=== PATIENT | female | born 1990 | race Caucasian/White ===

== ENCOUNTER 2019-03-19 08:58 | Outpatient (RCR) | payer OTHER, SELFPAY ==
[2019-03-19 09:47] VITALS: PULSE 97
== END 2019-04-09 07:36 | disposition home or self-care (01) ==
LOC: ANHOBOP 08:58
PROVIDERS: PCP Family Medicine; Visit Provider Student in an Organized Health Care Education/Training Program
DX: O32.1XX0 Maternal care for breech presentation, not applicable or unspecified (principal); Z3A.36 36 weeks gestation of pregnancy
CPT/HCPCS: 59025

== ENCOUNTER 2019-04-06 06:57 | Inpatient (IN) | payer OTHER, SELFPAY ==
[2019-04-06] VITALS (15 sets, daily range): BP systolic 116–134; BP diastolic 71–81; PULSE 96–101; TEMP 36.6–37.2; BMI 28.5
[2019-04-06 09:08] LABS: Basophils Percent Auto 0.3 % (0.2-1.2); Eosinophils Absolute Auto 0.1 K/mm3 (0-0.3); Eosinophils Percent Auto 0.7 % (0-4.4); Hematocrit 39.9 % (37.0-47.0); Hemoglobin 13.4 g/dL (12.0-15.0); Immature Granulocyte Absolute 0.07 K/mm3 (0.00-0.031); Immature Granulocyte Percent A 0.7 % (0-0.5); Immature Platelet Fraction Pct 20.3 % (0.9-11.2); Lymphocytes Absolute Auto 1.64 K/mm3 (0.9-3.2); Lymphocytes Percent Auto 15.5 % (18.3-44.2); Mean Corpuscular HGB Conc 33.6 g/dl (32-36); Mean Corpuscular Hemoglobin 32.2 pg (26-34); Mean Corpuscular Volume 95.9 fl (80-100); Mean Platelet Volume 13.5 fl (7.4-10.4); Monocytes Absolute Auto 0.4 K/mm3 (0.1-0.6); Monocytes Percent Auto 4.2 % (2.6-8.5); Neutrophils Absolute Auto 8.3 K/mm3 (1.3-6.7); Neutrophils Percent Auto 78.6 % (45.5-73.1); Platelet Count Result 116 k/mm3 (150-375); Red Blood Count 4.16 M/mm3 (4.2-5.4); Red Cell Distribution Width 13.6 % (11.5-14.5); White Blood Count 10.6 K/mm3 (4.5-10.0)
--- NOTE | 2019-04-06 09:12 | LDADM ---
This patient, Lyubov Costa, was admitted to Labor/Delivery/Recovery 106 on 04/06/19 at 06:57. Plans for labor, pain management and were discussed with patient. Patient/family oriented to hospital policies and general routines including ID bracelet, bed and alarms, visiting hours, pain management, procedures, bathroom and other care routines, personal items, smoking policy, room service/diet and guest tray routines, infant security routines, and visiting hours. Patient/Family are encouraged to report perceived risks to care and to ask questions if they do not understand what they are told or what they should do. See OBIX for further documentation.
[2019-04-06] MEDS: DINOPROSTONE 10 MG VAG INSERT VAGINAL (09:24)
--- NOTE | 2019-04-06 09:50 | PM.IMHP ---
H&P: HPI History of Present Illness Chief complaint: Induction of Labor Narrative: Lyubov Costa is a 28 year old female last menstrual period June 25, 2018. ALEX April 11, 2019. Patient is currently 39 weeks and 2 days gestation. Patient is dated by an ultrasound on August 20, 2018 at 6 weeks gestation. Patient presented this morning initially for a scheduled due to breech presentation. She was scanned upon arrival and fetus was noted to be in vertex presentation. Lengthy discussion was had with patient and patient has opted to proceed with elective induction of labor. the patient is otherwise feeling well today. Denies any vaginal bleeding, leakage of fluid, or contractions. Reports good movement. has been uncomplicated. Of note, father of baby had history of congenital heart defect status post repair at age 6. echo during this was within normal limits. Review of Systems Review of Systems: All systems reviewed & are unremarkable except as noted in HPI and below Constitutional: Constitutional: Reports as per HPI, Reports no additional constitutional complaints, Denies chills, Denies fever(s), Denies headache(s) and Denies night sweats Eyes: Eyes: Reports as per HPI and Reports no additional eye complaints ENT: Reports system reviewed and no additional complaints, except as documented, Reports as per HPI, Reports Normal hearing present and Denies headache(s) Cardiovascular: Cardiovascular: Reports as per HPI, Reports no additional cardiovascular complaints, Denies chest pain and Denies dyspnea Respiratory: Respiratory: Reports as per HPI, Reports no additional respiratory complaints, Denies cough and Denies dyspnea Gastrointestinal: Gastrointestinal: Reports as per HPI, Reports no additional gastrointestinal complaints, Denies abdominal pain, Denies change in bowel habits, Denies change in stool character, Denies nausea and Denies vomiting Genitourinary: Genitourinary: Reports no additional female genitourinary complaints, Reports as per HPI, Denies abnormal vaginal bleeding, Denies genital lesions, Denies hot flashes, Denies dyspareunia, Denies pelvic pain, Denies sexual dysfunction, Denies urinary incontinence, Denies vaginal discharge, Denies vaginal dryness and Denies vaginal odor Musculoskeletal: Musculoskeletal: Reports no additional musculoskeletal complaints and Reports as per HPI Integumentary/Breasts: Skin/Breast: Reports system reviewed and no additional complaints, except as docu, Reports as per HPI, Denies breast pain and Denies nipple discharge Neurologic: Reports system reviewed and no additional complaints, except as documented, Reports as per HPI, Reports Normal hearing present and Denies headache(s) Psychiatric: Psychiatric: Reports no additional psychiatric complaints, Reports as per HPI, Denies anxiety and Denies depression Endocrine: Endocrine: Reports no additional endocrine complaints and Reports as per HPI Hematologic/Lymphatic: Hematologic/Lymphatic: Reports no additional hematologic/lymphatic complaints and Reports as per HPI Allergic/Immunologic: Allergic/Immunologic: Reports no additional allergic/immunologic complaints and Reports as per HPI PMFSH Past Medical History Medical History Asthma Elevated glucose tolerance test Encounter for supervision of normal first in second trimester Encounter for supervision of normal first in third trimester History of herpes simplex infection Surgical History Surgical History [place] teeth removed Family History Family History Father Heart attack Mother Colon cancer Social History Social History Smoking status: Never smoker Substance use: never Spiritual care concerns: No
[2019-04-06 10:00] LABS: HIV 1/2 Ab P24 Ag Result Negative (Negative)
--- NOTE | 2019-04-06 17:21 | WPDANESEPP ---
Anes - Eval Pre Procedure Procedure: Operation Date: 04/06/19 09:00 Proposed Procedures p Labor epidural - Chana Marroquin MD Date/Time: 04/06/19 17:21 Pre Op Diagnosis: Abdominal pain with labor Patient Data Age: 28 Gender: F Height: 5 ft 3 in Weight: 73 kg Last Vital Signs Temp 97.9 F 04/06/19 17:12 Pulse 96 04/06/19 15:18 BP 123/75 04/06/19 15:18 Allergies Allergy/AdvReac Type Severity Reaction Status Date / Time No Known Allergies Allergy Verified 04/01/19 08:31 Home Medications Medication Instructions Recorded Confirmed Type albuterol sulfate 90 mcg/actuation 1 inhalation INHALATION Q4H 01/07/19 04/06/19 History aerosol inhaler vit 123-iron 28 mg-folic 1 cap PO DAILY 01/07/19 04/06/19 History acid 800 [id number] 235 mg capsule valacyclovir 500 mg tablet 500 mg PO Q12H #60 tablet 03/19/19 04/06/19 Rx Laboratory Tests 04/06/19 04/06/19 04/06/19 08:51 08:51 08:51 WBC 10.6 K/mm3 H K/mm3 (4.5-10.0) RBC 4.16 M/mm3 L M/mm3 (4.2-5.4) Hgb 13.4 g/dL g/dL (12.0-15.0) Hct 39.9 % % (37.0-47.0) MCV 95.9 fl fl (80-100) MCH 32.2 pg pg (26-34) MCHC 33.6 g/dl g/dl (32-36) RDW 13.6 % % (11.5-14.5) Plt Count 116 k/mm3 L k/mm3 (150-375) MPV 13.5 fl H fl (7.4-10.4) Immature Gran % (Auto) 0.7 % H % (0-0.5) Neut % (Auto) 78.6 % H % (45.5-73.1) Lymph % (Auto) 15.5 % L % (18.3-44.2) Izard % (Auto) 4.2 % % (2.6-8.5) Eos % (Auto) 0.7 % % (0-4.4) Baso % (Auto) 0.3 % % (0.2-1.2) Lymph # (Auto) 1.64 K/mm3 K/mm3 (0.9-3.2) Izard # (Auto) 0.4 K/mm3 K/mm3 (0.1-0.6) Eos # (Auto) 0.1 K/mm3 K/mm3 (0-0.3) Baso # (Auto) 0.0 K/mm3 K/mm3 (0.0-0.1) Abs Immat Gran (auto) 0.07 K/mm3 H K/mm3 (0.00-0.031) Absolute Neuts (auto) 8.3 K/mm3 H K/mm3 (1.3-6.7) Absolute Nucleated RBC 0.0 K/mm3 K/mm3 (0.0-0.012) Nucleated RBC % 0.0 % % (0.0-0.2) % Immature Plt Fraction 20.3 % H % (0.9-11.2) RPR Pending HIV 1&2 Ab/P24 Ag 4thGn Blood Type B Positive Antibody Screen Negative 04/06/19 08:51 WBC RBC Hgb Hct MCV MCH MCHC RDW Plt Count MPV Immature Gran % (Auto) Neut % (Auto) Lymph % (Auto) Izard % (Auto) Eos % (Auto) Baso % (Auto) Lymph # (Auto) Izard # (Auto) Eos # (Auto) Baso # (Auto) Abs Immat Gran (auto) Absolute Neuts (auto) Absolute Nucleated RBC Nucleated RBC % % Immature Plt Fraction RPR HIV 1&2 Ab/P24 Ag 4thGn Negative (Negative) Blood Type Antibody Screen Patient hx anesthesia problems: none Family hx anesthesia problems: none [facility] Past Medical History Medical History Asthma Elevated glucose tolerance test History of herpes simplex infection Surgical History Surgical History H/O wisdom tooth extraction [place] teeth removed Family History Family History Father Heart attack Mother Colon cancer Social History Social History Smoking status: Never smoker Substance use: never Spiritual care concerns: No Exam Day of Procedure 04/06/19 17:21
[2019-04-06] MEDS: LACTATED RINGERS 1,000 ML 125 ML IV CONT (22:00)
[2019-04-07] VITALS (129 sets, daily range): BP systolic 86–163; BP diastolic 48–96; PULSE 80–172; RESP 16; TEMP 36.9–37.7; O2SAT 97–100
[2019-04-07 07:16] LABS: Rapid Plasma Reagin Non-Reactive (NonReactive)
[2019-04-07] MEDS: LACTATED RINGERS 1,000 ML 125 ML IV CONT ×2 (10:54→15:04)
--- NOTE | 2019-04-07 11:48 | PM.OBPNLAB ---
Pain Control Date/time seen: 04/07/19 11:48 Pain control: tolerating well Pelvic Exam Dilation (cm): 3 Effacement (%): 70 station: -2 Comments: AROM-clear fluid Contractions Contraction pattern: Irregular Status status: Category l Assessment and Plan Assessment: induction ongoing Comments: Continue pitocin Continue EFM and toco Pain management PRN
[2019-04-07] MEDS: ONDANSETRON INJ 4 MG/2 ML VIAL IV PUSH (14:03)
[2019-04-07] MEDS: MISOPROSTOL 200 MCG TABLET 800 MCG RECTAL (21:14)
--- NOTE | 2019-04-07 21:22 | PM.OBPRVD ---
OB - Delivery Note Procedure Delivery date: 04/07/19 Procedure: Procedures The patient is now a 28 year-old who was admitted to Labor and delivery on 04/06/2019 at 39 weeks and 2 days gestation for an elective induction of labor. Induction of labor was started with Cervidil. Initial cervical exam was closed, thick, and high. Cervidil remained in place for 12 hours. Upon removal of Cervidil, cervix was noted to be approximately 2 cm dilated. 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 After 12 hours of Pitocin, the patient was noted to be 3 cm dilated. Pitocin was discontinued and the patient was rested. Artificial rupture membranes was performed at 11:04 a.m. Clear amniotic fluid was noted. Pitocin was restarted and continuously titrated. Patient began making cervical change. She became uncomfortable and requested epidural for pain management which was placed without difficulty. She continued to make progressive cervical change and was noted to be fully dilated at 7:00 p.m. the patient was encouraged to push and found to be pushed well. Patient was prepped and draped for delivery. A right mediolateral episiotomy was performed to facilitate delivery. At 8:43 p.m., 's head was delivered atraumatically without difficulty in ADINA presentation. Compound presentation was also noted as an hand was delivered alongside 's face. Occiput restituted to maternal left side. A nuchal cord x1 was noted and easily reduced. With subsequent push, the neck, shoulders, and rest body were also delivered atraumatically and without difficulty. Terminal meconium was noted. The 's nose and mouth were suction with bulb suction. The was crying spontaneously. The cord was clamped and cut and the was placed on maternal abdomen. Care was assumed by waiting nursing staff. A segment of cord was collected for cord gases. Cord blood was collected. The placenta was delivered spontaneously and intact. The lower segment of the uterus was noted to be boggy. Moderate amount of bleeding was noted. Straight catheterization was performed with a minimal amount of urine returned. Vigorous bimanual massage was performed and uterine fundus and lower segment was noted to be firm. The episiotomy was repaired with 2-0 Vicryl in the usual fashion. Excellent hemostasis was noted. A moderate amount of bleeding recurred. Bimanual massage was performed again. Cytotec 800 mcg was administered rectally. Bleeding subsided. The patient was cleansed and dried. Estimated blood loss for entire delivery was 450 cc. The infant was a live born male weighing 7 lb 8 oz, Apgars 7 and 9. Both mother and baby doing well at end of delivery. Operation Date: 04/06/19 09:00 <No data on this case meets the specified criteria> events: Labor Induction Intrapartal events: None Induction method: other (cervidil) Delivery augmentation: rupture of membranes and pitocin Delivery monitor: none, external FHT and external uterine Route of delivery: Episiotomy description: Right Mediolateral Delivery repair: vicryl Specimen: No Estimated blood loss (mL): 450 Anesthesia type: Epidural Disposition: floor Complications: None Baby Date of : 04/07/19 Time of : 20:43 Weeks of gestation at delivery: 39 gender: Male Weight (pounds): 7 Weight (ounces): 8 presentation: vertex position: Left Occiput Anterior Placenta delivery description: Spontaneous cord vessel description: 3 Vessels, Nuchal Cord and Clamped/Cut score one minute: 7 score five minutes: 9
[2019-04-07] MEDS: BENZOCAINE 20% AER SPR (*SP) 56 GM CAN 1 SPRAY TOPICAL (22:42)
[2019-04-07] MEDS: IBUPROFEN 600 MG TABLET PO (22:42)
[2019-04-07] MEDS: WITCH HAZEL 40 PADS 1 PAD TOPICAL (22:42)
--- NOTE | 2019-04-07 23:24 | OBPPTRN ---
Patient transferred to post room #291 via wheelchair. Support person present. Oriented to unit, room, information board, rooming in, admission packet and security measures. Patient verbalizes understanding. with patient.
[2019-04-08] MEDS: ACETAMINOPHEN 325 MG TABLET 650 MG PO ×2 (01:51→09:18)
[2019-04-08] MEDS: IBUPROFEN 600 MG TABLET PO ×2 (04:59→16:08)
[2019-04-08 05:45] LABS: Hematocrit 34.6 % (37.0-47.0); Hemoglobin 11.6 g/dL (12.0-15.0)
[2019-04-08 08:00] VITALS: BP 113/77; PULSE 88; RESP 18; TEMP 36.7; O2SAT 100; O2SAT 98
--- NOTE | 2019-04-08 08:29 | PM.OBPNVD ---
OB - PN: Subj Subjective Date/time seen: 04/08/19 08:29 Patient doing well. Reports minimal pain, well controlled with medication. Denies any heavy vaginal bleeding, headache, chest pain, nausea or vomiting. OB - PN: Obj Data Labs CBC & Chem 7: 04/08/19 04:38 Labs: Laboratory Results - last 24 hr 04/08/19 04:38 Hgb 11.6 L Hct 34.6 L OB - PN A/P Assessment and Plan (1) Normal spontaneous vaginal delivery: Code(s): O80 - Encounter for full-term uncomplicated delivery Status: Acute Assessment and Plan: Doing well Continue routine care Encourage ambulation Pain management PRN anticipate discharge home tomorrow Time Spent With Patient Time: Total time spent is greater than 50% in coordination of care (as documented) at patient's floor/unit and/or counseling patient: Exam Const: General: comfortable and no acute distress GI: Other: soft, nontender, fundus below umbilicus
[2019-04-08] MEDS: SIMETHICONE 80 MG TAB.CHEW PO (09:18)
[2019-04-08] MEDS: MULTIVIT/MIN/PREN/FOL AC/IRON TABLET 1 TAB PO (09:18)
[2019-04-08] MEDS: DOCUSATE SODIUM 100 MG CAPSULE PO ×2 (09:18→16:08)
[2019-04-08] MEDS: LANOLIN (LANSINOH) 7.5 GM CREAM 1 APPLIC TOPICAL (09:19)
[2019-04-08] MEDS: WITCH HAZEL 40 PADS 1 PAD TOPICAL (09:20)
[2019-04-08] MEDS: BENZOCAINE 20% AER SPR (*SP) 56 GM CAN 1 SPRAY TOPICAL (09:20)
--- NOTE | 2019-04-08 12:15 | PC.NURSE ---
Mother called out for assist with feeding, reporting is using nipple shield for all feedings. Mother will then pump and nipple EBM after. Discussed nipple shield precautions and possible complications. Instructions given on application and cleaning of shield. Patient able to return demonstration on proper application of shield. Discussed the need for regular pumping if continues to nurse with the shield. Patient verbalizes understanding. Reviewed feeding cues, frequencies, duration of feedings, feeding elimination flow sheet, and signs of adequate intake. Demonstrated stimulation techniques to wake infant for feeding. Assisted with infant to breast. Reviewed positioning/alignment in cross cradle, holding breast in U hold and guided asymmetrical latch on. Discussed rational for each. was able to latch correctly with first attempt using shield. Infant nursed eagerly, with steady draws and frequent swallowing noted. Reviewed signs of a correct latch, effective nursing and suck swallow ratio. was able to maintain latch without discomfort to mother. Nipple care reviewed. Advised to stimulate to keep awake and nursing effectively. Instructed mother to call out for RN assistance if she is unable to latch for feeding or she has discomfort with nursing. Instructed feeding should be initiated three hours from start of last feeding or if feeding cues are noted before. Mother voiced understanding of information shared. Mother will pump when feeding completed and supplement with EBM. Requested mother call out for assist with pumping.
[2019-04-08 22:24] VITALS: BP 105/63; PULSE 82; RESP 18; TEMP 36.8
[2019-04-09] MEDS: IBUPROFEN 600 MG TABLET PO ×2 (05:05→12:20)
--- NOTE | 2019-04-09 09:17 | PM.OBPNVD ---
OB - PN: Subj Subjective Date/time seen: 04/09/19 09:17 Patient doing well. Denies significant pain, well controlled with medication. Bleeding subsiding. Denies any headache, chest pain, nausea vomiting. No problems with breasts. Baby well. OB - PN: Obj Data Labs CBC & Chem 7: 04/08/19 04:38 OB - PN A/P Assessment and Plan (1) Normal spontaneous vaginal delivery: Code(s): O80 - Encounter for full-term uncomplicated delivery Status: Acute Assessment and Plan: Doing well Continue routine care Discharge home in stable condition Emergency precautions reviewed with patient Follow up in office in 2 weeks for an episiotomy check Time Spent With Patient Time: Total time spent is greater than 50% in coordination of care (as documented) at patient's floor/unit and/or counseling patient: Exam Const: General: comfortable and no acute distress GI: Other: soft, nontender, fundus firm beneath umbilicus
--- NOTE | 2019-04-09 09:20 | PM.OBDSVD ---
DS: Diagnosis Admitting Diagnosis Admitting Diagnosis: 39 weeks gestation of OB - DS: Summary OB Procedures : None OB Procedures Intrapartum: Spontaneous Vag Delivery OB Procedures: : None Peripartum Data Delivery Method: Natural Vaginal Episiotomy description: Right Mediolateral Procedures: Procedures Operation Date: 04/06/19 09:00 <No data on this case meets the specified criteria> complications: none Status at Discharge Functional status at discharge: independent ambulation Time Spent with Patient Time attestation: Total time spent providing and/or coordinating discharge services: Discharge Plan Discharge Attending physician on discharge: Chana Marroquin Discharging Clinician: Chana Marroquin Anticipated Discharge Date/Time: 04/09/19 09:21 Patient Disposition: Home, Self-Care Activity: no straining, as tolerated and pelvic rest Diet: regular Discharge Instructions: Call office ([phone]) to schedule a visit in 2 weeks. You may take Ibuprofen 600mg every 6 hours as needed for pain. Pain medication may make you constipated. It may be helpful to take an [id number] stool softener, such as Colace and/or Senokot, along with the pain medication to help lessen constipation. Call office or go to ED for pain not controlled with medication, headache, chest pain, shortness of breath, fever, chills, persistent nausea or vomiting, severe abdominal pain, heavy vaginal bleeding >2 pads/hour, foul vaginal discharge or odor, or problems with your breasts. Patient Instructions: Antibiotic Form Stand Alone Forms: General Discharge Information Follow-up/Referrals: Chana Marroquin MD [Physician] - Discharge Medications: Continued albuterol sulfate 90 mcg/actuation HFA aerosol inhaler 1 inhalation INHALATION Q4H RF: 0 One-A-Day Women's 1 28 mg iron- 800 mcg-235 mg capsule 1 cap PO DAILY RF: 0 Discontinued valacyclovir 500 mg tablet 500 mg PO Q12H Qty: 60 RF: 0 Date of admission: 04/06/19 06:57 Primary Care Provider: UNKNOWN,DOCTOR Admitting Provider: Chana Marroquin Attending physician on admission: Chana Marroquin Condition: Stable
--- NOTE | 2019-04-09 11:05 | PC.NURSE ---
Mother called out for assist with feeding. Mother states she continues to use the nipple shield for all feedings. Mother is pumping 1-2 mls per session and is concerned with feeding status. Mother is worried is not getting enough or feeding as freq as needed. Infant has not fed since circumcision this am. Reviewed feeding freq and need to wake for feedings every 3 hours, feeding before if feeding cues noted. Assisted with infant to breast, mother is able to latch correctly without assist. remains sleepy and makes no effort to suckle. Suggested small amount of formula to infant then transition over to breast. responded well with eager suckling to bottle then on to nipple shield with long rhythmic draws and occasional swallowing noted. Advised to stimulate to keep awake and eagerly suckling. Suggested parents continue to breastfeed each feeding following above to wake and entice into eager suckling. Parents will give 15mls EBM/formula after each feeding and mother will pump for 10-15 minutes. Reviewed infant may require more supplement before her milk is in, and then should slowing take less of supplement until refusing. Advised parents to keep accurate records of feeding/elimination sheet, reviewing required output, calling ICP if less than required. Mother is feeding as required and waking to feed if needed. is currently meeting outcomes for weight, output, jaundice and feeding frequencies. Mother states she feels confident to continue with feeding plan at home. Reviewed transition to breast milk, signs of adequate intake, and engorgement/relief. Instructed to call ICP if intake/output less than required. Reviewed regular medications mother is taking. Information provided per Lizette. Reviewed community resources on the [facility] website and in the Mom/Baby guide. Information on outpatient services provided. Mother has no further questions at this time.
[2019-04-09 12:39] VITALS: BP 118/76; PULSE 94; RESP 16; TEMP 36.9; O2SAT 98
--- NOTE | 2019-04-09 12:42 | PC.NURSE ---
Patient viewed the discharge video Mother & Baby Care, The First Two Weeks . Patient was given the opportunity and encouraged to ask questions. Patient verbalized understanding of information shared and has been given the mother/baby guide for home reference.
[2019-04-10 11:27] VITALS: BP 119/76; PULSE 93; RESP 18; TEMP 36.9
== END 2019-04-09 13:24 | disposition home or self-care (01) | DRG 807 ==
LOC: ANHLDR 17:23 → ANHOB2 04-07 23:59
PROVIDERS: Admitting Provider Student in an Organized Health Care Education/Training Program; Visit Provider Student in an Organized Health Care Education/Training Program
DX: O99.52 Diseases of the respiratory system complicating childbirth (principal); Z37.0 Single live birth; Z3A.39 39 weeks gestation of pregnancy; J45.909 Unspecified asthma, uncomplicated; O69.81X0 Labor and delivery complicated by cord around neck, without compression, not applicable or unspecified; O36.8330 Maternal care for abnormalities of the fetal heart rate or rhythm, third trimester, not applicable or unspecified; Z86.19 Personal history of other infectious and parasitic diseases
CPT/HCPCS: 36415; 85014; 85018; 85025; 85055; 86592; 86703; 86850; 86900; 86901; A9270; G0432; J2405; J2590; J2795; J3010; J7120

== ENCOUNTER → 2019-08-05 15:05 | Outpatient (REF) | payer OTHER, SELFPAY | LOC: ANHLAB 15:05 | PROVIDERS: Visit Provider Nurse Practitioner | DX: D49.2 Neoplasm of unspecified behavior of bone, soft tissue, and skin (principal); L98.0 Pyogenic granuloma | CPT/HCPCS: 88305 ==

== ENCOUNTER 2019-10-06 08:05 | Outpatient (CLI) | payer OTHER, SELFPAY ==
[2019-10-06 08:48] LABS: Beta HCG Quantitative < 2.39 mIU/ML
== END 2019-10-06 08:06 | disposition home or self-care (01) ==
LOC: ANHLAB 08:07
PROVIDERS: PCP Family Medicine; Visit Provider Student in an Organized Health Care Education/Training Program
DX: Z30.430 Encounter for insertion of intrauterine contraceptive device (principal)
CPT/HCPCS: 36415; 84702

== ENCOUNTER → 2021-09-26 09:56 | Outpatient (CLI) | payer OTHER, SELFPAY ==
--- NOTE | ~2021-09-26 | US_ITS ---
EXAMINATION: US OB <= 14 weeks fetus DATE: 09/26/2021 10:23 INDICATION: First trimester dating and viability assessment TECHNIQUE: Real-time pelvic transabdominal and transvaginal ultrasound was performed. COMPARISON: None. FINDINGS: The uterus measures 11.7 x 5.5 x 7.1 cm. There is an intrauterine gestational sac. There i s a 10 mm hypoechoic area adjacent to the gestational sac. A yolk sac is identified. heart tyra on is identified measuring 165 beats per minute (bpm) by M-mode Doppler. The crown rump length measures 3.7 cm , which correlates with an estimated gestational age of 10 weeks and 4 day(s) (+/-) 7 day(s). The right ovary measures 2.7 x 1.1 x 2.7 cm. The left ovary measures 2.0 x 1.0 x 1.8 cm. There is nor mal vascular flow in the ovaries. There is no free fluid in the pelvis. IMPRESSION: 1. Live intrauterine with an estimated gestational age of 10 weeks and 4 day(s) (+/-) 7 day (s) and an estimated delivery date of 04/20/2022. 2. Small subchorionic hemorrhage. Reviewed, dictated and finalized at location B. IMPRESSION: 1. Live intrauterine with an estimated gestational age of 10 weeks an d 4 day(s) (+/-) 7 day(s) and an estimated delivery date of 04/20/2022. 2. Small subchorionic hemorrhage.
== END ==
LOC: EXPGOSHRAD 09:59
PROVIDERS: PCP Family Medicine; Visit Provider Student in an Organized Health Care Education/Training Program
DX: Z32.00 Encounter for pregnancy test, result unknown (principal); O42.90 Premature rupture of membranes, unspecified as to length of time between rupture and onset of labor, unspecified weeks of gestation; Z3A.00 Weeks of gestation of pregnancy not specified
CPT/HCPCS: 76801

== ENCOUNTER 2021-10-11 10:21 | Outpatient (CLI) | payer OTHER, SELFPAY ==
[2021-10-11 10:58] LABS: Basophils Absolute Auto 0.1 K/mm3 (0.0-0.1); Basophils Percent Auto 0.5 % (0.2-1.2); Eosinophils Absolute Auto 0.1 K/mm3 (0-0.3); Eosinophils Percent Auto 0.5 % (0-4.4); Hematocrit 38.3 % (37.0-47.0); Hemoglobin 13.3 g/dL (12.0-15.0); Immature Granulocyte Absolute 0.03 K/mm3 (0.00-0.031); Immature Granulocyte Percent A 0.3 % (0-0.5); Mean Corpuscular HGB Conc 34.7 g/dl (32-36); Mean Corpuscular Hemoglobin 31.5 pg (26-34); Mean Corpuscular Volume 90.8 fl (80-100); Mean Platelet Volume 11.5 fl (7.4-10.4); Monocytes Absolute Auto 0.5 K/mm3 (0.1-0.6); Monocytes Percent Auto 4.2 % (2.6-8.5); Neutrophils Absolute Auto 8.6 K/mm3 (1.3-6.7); Neutrophils Percent Auto 80.5 % (45.5-73.1); Platelet Count Result 239 k/mm3 (150-375); Red Blood Count 4.22 M/mm3 (4.2-5.4); Red Cell Distribution Width 13.1 % (11.5-14.5); White Blood Count 10.7 K/mm3 (4.5-10.0)
[2021-10-11 11:36] LABS: Vitamin D 25 Hydroxy 76.8 ng/mL
[2021-10-11 11:50] LABS: Hepatitis B Surface Antigen Negative (Negative); Rubella IgG Antibody 17.4 IU/ML
[2021-10-11 12:06] LABS: Hepatitis C Virus Antibody Negative (Negative)
[2021-10-11 12:34] LABS: Rapid Plasma Reagin Non-Reactive (NonReactive)
[2021-10-11 13:10] LABS: HIV 1/2 Ab P24 Ag Result Negative (Negative)
== END 2021-10-11 10:22 | disposition home or self-care (01) ==
LOC: ANHLAB 10:23
PROVIDERS: PCP Family Medicine; Visit Provider Student in an Organized Health Care Education/Training Program
DX: Z34.90 Encounter for supervision of normal pregnancy, unspecified, unspecified trimester (principal); Z3A.00 Weeks of gestation of pregnancy not specified
CPT/HCPCS: 36415; 82306; 84443; 85025; 86592; 86703; 86762; 86787; 86803; 86850; 86900; 86901; 87086; 87147; 87181; 87186; 87340; G0432

== ENCOUNTER 2022-01-23 07:09 | Outpatient (CLI) | payer OTHER, SELFPAY ==
[2022-01-23 08:36] LABS: Basophils Percent Auto 0.3 % (0.2-1.2); Eosinophils Absolute Auto 0.1 K/mm3 (0-0.3); Eosinophils Percent Auto 0.7 % (0-4.4); Hematocrit 35.5 % (37.0-47.0); Hemoglobin 12.1 g/dL (12.0-15.0); Immature Granulocyte Absolute 0.04 K/mm3 (0.00-0.031); Immature Granulocyte Percent A 0.5 % (0-0.5); Lymphocytes Absolute Auto 0.99 K/mm3 (0.9-3.2); Lymphocytes Percent Auto 11.3 % (18.3-44.2); Mean Corpuscular HGB Conc 34.1 g/dl (32-36); Mean Corpuscular Hemoglobin 32.1 pg (26-34); Mean Corpuscular Volume 94.2 fl (80-100); Monocytes Absolute Auto 0.3 K/mm3 (0.1-0.6); Monocytes Percent Auto 3.8 % (2.6-8.5); Neutrophils Absolute Auto 7.3 K/mm3 (1.3-6.7); Neutrophils Percent Auto 83.4 % (45.5-73.1); Platelet Count Result 142 k/mm3 (150-375); Red Blood Count 3.77 M/mm3 (4.2-5.4); Red Cell Distribution Width 13.9 % (11.5-14.5); White Blood Count 8.8 K/mm3 (4.5-10.0)
[2022-01-23 09:04] LABS: Glucose 1 Hour PP 50gm Dose 154 mg/dL
== END 2022-01-23 07:10 | disposition home or self-care (01) ==
LOC: ANHLAB 07:10
PROVIDERS: PCP Family Medicine; Visit Provider Student in an Organized Health Care Education/Training Program
DX: Z34.82 Encounter for supervision of other normal pregnancy, second trimester (principal)
CPT/HCPCS: 36415; 82947; 85025

== ENCOUNTER 2022-02-08 06:59 | Outpatient (CLI) | payer OTHER, SELFPAY ==
[2022-02-08 07:42] LABS: Glucose Fasting Gestational 85 mg/dL (>/=95)
[2022-02-08 09:50] LABS: Glucose 1 Hour Gest 165 mg/dL (>/=180)
[2022-02-08 11:03] LABS: Glucose 2 Hour Gest 137 mg/dL (>/= 155)
[2022-02-08 11:41] LABS: Glucose 3 Hour Gest 126 mg/dL (>/=140)
== END 2022-02-08 07:00 | disposition home or self-care (01) ==
LOC: ANHLAB 07:01
PROVIDERS: PCP Family Medicine; Visit Provider Student in an Organized Health Care Education/Training Program
DX: O99.810 Abnormal glucose complicating pregnancy (principal); Z3A.00 Weeks of gestation of pregnancy not specified
CPT/HCPCS: 36415; 82951; 82952

== ENCOUNTER 2022-02-11 10:23 | Emergency (ER) | payer OTHER, SELFPAY ==
[2022-02-11 10:48] VITALS: BP 122/69; PULSE 106; RESP 18; TEMP 36.3; O2SAT 98
--- NOTE | 2022-02-11 19:20 | ED.GENADULT ---
HPI - General Adult General Chief complaint: Upper Respiratory Infection Stated complaint: Sore Throat History of Present Illness HPI narrative: 31 y/o female. PMHx non-contributory. Presents to [facility] today with acute complaints of sore throat, started in past 24 hours. No GAGE, dizziness, focal weakness. No fevers, neck pain. Denies dyspnea, dysphagia, involuntary drooling. No chest pain, palpitations, hemoptysis. Actively , no related concerns. Related Data Home Medications Medication Instructions Recorded Confirmed prenat.vits,hira,[id number] 1 tablet PO DAILY 09/21/21 02/11/22 Allergies Allergy/AdvReac Type Severity Reaction Status Date / Time No Known Allergies Allergy Verified 02/11/22 10:40 PMFSH Past Medical History Medical History Asthma History of herpes simplex infection Vaginal delivery x1 Surgical History Surgical History [place] teeth removed Family History Family History Mother Carcinoma of colon Father Heart attack Mother Colon cancer Social History Social History Smoking status: Never smoker Alcohol intake: current Substance use: never Spiritual care concerns: No Exam Narrative: GENERAL: Well-appearing, well-nourished, and in no acute distress. HEAD: Normocephalic, atraumatic. EYES: PERRLA, conjunctivae clear, and EOMI. ENT: Mucous membranes moist. Positive PND. Pharyngeal erythema, without swelling or exudative changes, Uvula midline. Palate soft. NECK: Supple. No lymphadenopathy CHEST: Clear to auscultation. No respiratory distress. HEART: Regular rate and rhythm. SKIN: Warm, dry, intact NEURO:? Alert and oriented x3. PSYCH: Normal mood and affect Course Course Level of Care: Express Care Visit Vital Signs Vital signs: Vital Signs Temperature 36.3 C L 02/11/22 10:48 Pulse Rate 106 H 02/11/22 10:48 Respiratory Rate 18 02/11/22 10:48 Blood Pressure 122/69 02/11/22 10:48 Pulse Oximetry 98 02/11/22 10:48 Oxygen Delivery Room Air 02/11/22 10:48 Temperature 36.3 C L 02/11/22 10:48 Pulse Rate 106 H 02/11/22 10:48 Respiratory Rate 18 02/11/22 10:48 Blood Pressure 122/69 02/11/22 10:48 Pulse Oximetry 98 02/11/22 10:48 Oxygen Delivery Room Air 02/11/22 10:48 Medical Decision Making Differential Diagnosis Differential Diagnosis: Differential Diagnosis: Consideration of the following conditions may be warranted for the presenting problem, they are not final diagnoses: upper respiratory infection, otitis media, sinusitis, RSV viral infection, PNA, bronchitis, pharyngitis, Streptococcal sore throat, COVID-19, and other. Vital Signs Vital Signs: Vital Signs Temperature 36.3 C L 02/11/22 10:48 Pulse Rate 106 H 02/11/22 10:48 Respiratory Rate 18 02/11/22 10:48 Blood Pressure 122/69 02/11/22 10:48 Pulse Oximetry 98 02/11/22 10:48 Oxygen Delivery Room Air 02/11/22 10:48 Temperature 36.3 C L 02/11/22 10:48 Pulse Rate 106 H 02/11/22 10:48 Respiratory Rate 18 02/11/22 10:48 Blood Pressure 122/69 02/11/22 10:48 Pulse Oximetry 98 02/11/22 10:48 Oxygen Delivery Room Air 02/11/22 10:48 Lab Data Labs: Strep Screen Presumptive Negative *(Reference Range: Negative)* Discharge Plan Discharge Clinical Impression: Pharyngitis Qualifiers: Pharyngitis/tonsillitis etiology: unspecified etiology Qualified Code(s): J02.9 - Acute pharyngitis, unspecified Patient Disposition: Home, Self-Care Condition: Stable Instructions: Pharyngitis (ED) Prescriptions: No Action prenat.vits,hira,[id number] Tablet 1 tablet PO DAILY Follow-up/Refe
== END 2022-02-11 11:15 | disposition home or self-care (01) ==
PROVIDERS: Emergency Provider Nurse Practitioner Adult Health; PCP Family Medicine
DX: J02.9 Acute pharyngitis, unspecified (principal); J45.909 Unspecified asthma, uncomplicated
CPT/HCPCS: 87081; 87880; 99213; G0463

== ENCOUNTER 2022-03-21 07:05 | Outpatient (CLI) | payer OTHER, SELFPAY ==
[2022-03-21 07:21] LABS: Basophils Absolute Auto 0.1 K/mm3 (0.0-0.1); Basophils Percent Auto 0.5 % (0.2-1.2); Eosinophils Absolute Auto 0.1 K/mm3 (0-0.3); Eosinophils Percent Auto 1.3 % (0-4.4); Hematocrit 41.1 % (37.0-47.0); Hemoglobin 13.9 g/dL (12.0-15.0); Immature Granulocyte Absolute 0.05 K/mm3 (0.00-0.031); Immature Granulocyte Percent A 0.5 % (0-0.5); Lymphocytes Absolute Auto 1.69 K/mm3 (0.9-3.2); Lymphocytes Percent Auto 16.7 % (18.3-44.2); Mean Corpuscular HGB Conc 33.8 g/dl (32-36); Mean Corpuscular Hemoglobin 31.5 pg (26-34); Mean Corpuscular Volume 93.2 fl (80-100); Mean Platelet Volume 12.3 fl (7.4-10.4); Monocytes Absolute Auto 0.7 K/mm3 (0.1-0.6); Monocytes Percent Auto 6.5 % (2.6-8.5); Neutrophils Absolute Auto 7.5 K/mm3 (1.3-6.7); Neutrophils Percent Auto 74.5 % (45.5-73.1); Platelet Count Result 130 k/mm3 (150-375); Red Blood Count 4.41 M/mm3 (4.2-5.4); Red Cell Distribution Width 13.3 % (11.5-14.5); White Blood Count 10.1 K/mm3 (4.5-10.0)
[2022-03-21 09:21] LABS: HIV 1/2 Ab P24 Ag Result Negative (Negative)
[2022-03-21 10:39] LABS: Rapid Plasma Reagin Non-Reactive (NonReactive)
== END 2022-03-21 07:06 | disposition home or self-care (01) ==
LOC: ANHLAB 07:07
PROVIDERS: PCP Family Medicine; Visit Provider Obstetrics & Gynecology
DX: Z34.83 Encounter for supervision of other normal pregnancy, third trimester (principal); Z3A.00 Weeks of gestation of pregnancy not specified
CPT/HCPCS: 36415; 85025; 86592; 86703; G0432

== ENCOUNTER 2022-04-23 08:42 | Outpatient (RCR) | payer OTHER, SELFPAY ==
--- NOTE | ~2022-04-23 | US_ITS ---
EXAMINATION: US OB limited w BPP DATE: 04/23/2022 10:56 CONSULTING PROJECT DIRECTOR INDICATION: Evaluate amniotic fluid index and biophysical profile. Decreased heart rate. TECHNIQUE: Real-time transabdominal obstetric ultrasound. FINDINGS: 09/26/2021 There is a single living fetus in vertex presentation. The placenta is fundal without placenta previ a. cardiac activity and movement is noted with a heart rate of 133 beats per minute. A mniotic fluid index is low normal measuring 6.7 cm (normal range for gestational age is 7.1-21.4 cm). Biophysical profile: breathin of 2 movement: 2 of 2 tone: 2 of 2 Amniotic flud pocket: 2 of 2 Total score: 8 of 8 IMPRESSION: 1. Single living intrauterine in vertex presentation. 2: Total biophysical profile score of 8/8. 3: Oligohydramnios. Reviewed, dictated and finalized at location L. ULTING PROJECT DIRECTOR
[2022-04-23 11:16] VITALS: BP 125/76; PULSE 93
== END 2022-04-23 09:00 | disposition home or self-care (01) ==
LOC: ANHOBOP 08:42
PROVIDERS: PCP Family Medicine; Visit Provider Obstetrics & Gynecology
DX: O36.8330 Maternal care for abnormalities of the fetal heart rate or rhythm, third trimester, not applicable or unspecified (principal); O41.03X0 Oligohydramnios, third trimester, not applicable or unspecified; Z3A.39 39 weeks gestation of pregnancy
CPT/HCPCS: 59025; 76815; 76819

== ENCOUNTER 2022-04-25 06:26 | Inpatient (IN) | payer OTHER, SELFPAY ==
[2022-04-25] VITALS (88 sets, daily range): BP systolic 119–154; BP diastolic 64–98; PULSE 74–121; RESP 16–18; TEMP 36.1–36.9; O2SAT 96–100; BMI 30.7
--- NOTE | 2022-04-25 06:26 | LDADM ---
This patient, Lyubov Costa, was admitted to Labor/Delivery/Recovery 103 on 04/25/22 at 06:26. Plans for labor, pain management and were discussed with patient. Patient/family oriented to hospital policies and general routines including ID bracelet, bed and alarms, visiting hours, pain management, procedures, bathroom and other care routines, personal items, smoking policy, room service/diet and guest tray routines, infant security routines, and visiting hours. Patient/Family are encouraged to report perceived risks to care and to ask questions if they do not understand what they are told or what they should do. See OBIX for further documentation.
[2022-04-25 07:15] LABS: Basophils Percent Auto 0.4 % (0.2-1.2); Eosinophils Absolute Auto 0.1 K/mm3 (0-0.3); Eosinophils Percent Auto 0.8 % (0-4.4); Hematocrit 39.5 % (37.0-47.0); Hemoglobin 13.7 g/dL (12.0-15.0); Immature Granulocyte Absolute 0.05 K/mm3 (0.00-0.031); Immature Granulocyte Percent A 0.5 % (0-0.5); Immature Platelet Fraction Pct 25.6 % (0.9-11.2); Lymphocytes Absolute Auto 1.83 K/mm3 (0.9-3.2); Lymphocytes Percent Auto 18.4 % (18.3-44.2); Mean Corpuscular HGB Conc 34.7 g/dl (32-36); Mean Corpuscular Hemoglobin 31.9 pg (26-34); Mean Corpuscular Volume 91.9 fl (80-100); Mean Platelet Volume 13.4 fl (7.4-10.4); Monocytes Absolute Auto 0.4 K/mm3 (0.1-0.6); Monocytes Percent Auto 4.3 % (2.6-8.5); Neutrophils Absolute Auto 7.5 K/mm3 (1.3-6.7); Neutrophils Percent Auto 75.6 % (45.5-73.1); Platelet Count Result 119 k/mm3 (150-375); Red Cell Distribution Width 13.9 % (11.5-14.5); White Blood Count 9.9 K/mm3 (4.5-10.0)
[2022-04-25] MEDS: OXYTOCIN 30 UNITS/NS 500 ML 30 UNITS/500 ML BAG IV CONT (07:32)
[2022-04-25] MEDS: LACTATED RINGERS 1,000 ML 125 ML IV CONT ×2 (07:32→11:02)
--- NOTE | 2022-04-25 11:13 | WPDANESEPP ---
Anes - Eval Pre Procedure Procedure: labor epidural Date/Time: 04/25/22 11:13 Preop Diagnosis: labor pain Pre Op Diagnosis: iol Patient Data Age: 31 Gender: F Height: 1.6 m Weight: 78.5 kg Last Vital Signs Temp 36.8 C 04/25/22 11:03 Pulse 79 04/25/22 11:00 BP 136/82 04/25/22 11:00 O2 Del Method Room Air 04/25/22 07:05 Allergies Allergy/AdvReac Type Severity Reaction Status Date / Time No Known Allergies Allergy Verified 04/23/22 08:15 Home Medications Medication Instructions Recorded Confirmed Type prenat.vits,hira,[id number] 1 tablet PO DAILY 09/21/21 04/25/22 History albuterol sulfate 90 mcg/actuation 2 puff inhalation QID PRN Wheezing 04/01/22 04/23/22 History aerosol inhaler Laboratory Tests 04/25/22 04/25/22 04/25/22 06:57 06:57 06:57 WBC 9.9 K/mm3 K/mm3 (4.5-10.0) RBC 4.30 M/mm3 M/mm3 (4.2-5.4) Hgb 13.7 g/dL g/dL (12.0-15.0) Hct 39.5 % % (37.0-47.0) MCV 91.9 fl fl (80-100) MCH 31.9 pg pg (26-34) MCHC 34.7 g/dl g/dl (32-36) RDW 13.9 % % (11.5-14.5) Plt Count 119 k/mm3 L k/mm3 (150-375) MPV 13.4 fl H fl (7.4-10.4) Immature Gran % (Auto) 0.5 % % (0-0.5) Neut % (Auto) 75.6 % H % (45.5-73.1) Lymph % (Auto) 18.4 % % (18.3-44.2) Lake % (Auto) 4.3 % % (2.6-8.5) Eos % (Auto) 0.8 % % (0-4.4) Baso % (Auto) 0.4 % % (0.2-1.2) Lymph # (Auto) 1.83 K/mm3 K/mm3 (0.9-3.2) Lake # (Auto) 0.4 K/mm3 K/mm3 (0.1-0.6) Eos # (Auto) 0.1 K/mm3 K/mm3 (0-0.3) Baso # (Auto) 0.0 K/mm3 K/mm3 (0.0-0.1) Abs Immat Gran (auto) 0.05 K/mm3 H K/mm3 (0.00-0.031) Absolute Neuts (auto) 7.5 K/mm3 H K/mm3 (1.3-6.7) Absolute Nucleated RBC 0.0 K/mm3 K/mm3 (0.0-0.012) Nucleated RBC % 0.0 % % (0.0-0.2) % Immature Plt Fraction 25.6 % H % (0.9-11.2) RPR Pending Blood Type B Positive Antibody Screen Negative Patient hx anesthesia problems: none Family hx anesthesia problems: none Results Review: All pre-operative results and documents have been reviewed as part of the pre-operative evaluation. [facility] Past Medical History Medical History Asthma History of herpes simplex infection Vaginal delivery x1 Surgical History Surgical History [place] teeth removed Family History Family History Mother Carcinoma of colon Father Heart attack Mother Colon cancer Social History Social History Smoking status: Never smoker Second hand tobacco smoke exposure: Yes Alcohol intake: former Alcohol use details: Not since Substance use: never Lack of Transportation: No Lack of Food: Never True Current Housing: I Have Housing Concerned About Future Housing: No Difficulty Paying Gas/Electric Bills: No Difficulty Paying for Meds: No Currently Unemployed: No Education: Bachelor's Degree Difficulty w/ Childcare or Family Care: No Living arrangements: with family Occupation/Education: occupation Gender identity (if verbalized by the patient): Female Sexual Orientation (if Verbalized by the Patient): Straight or Heterosexual Spiritual care concerns: No Exam Day of Procedure 04/25/22 11:13 Patient weight: normal Heart: regular rate and rhythm Lungs: clear to auscultation and normal air movement Airway: Mallampati scale Neurological: alert and oriented
[2022-04-25 13:09] LABS: Rapid Plasma Reagin Non-Reactive (NonReactive)
--- NOTE | 2022-04-25 13:11 | PM.OBPNVD ---
OB - PN: Subj Subjective Date/time seen: 04/25/22 13:11 Interval history: Cat 1, AROM, clear, /1. Continue pitocin. OB - PN: Obj Data Labs 04/25/22 06:57 Labs: Laboratory Results - last 24 hr 04/25/22 04/25/22 04/25/22 06:57 06:57 06:57 WBC 9.9 RBC 4.30 Hgb 13.7 Hct 39.5 MCV 91.9 MCH 31.9 MCHC 34.7 RDW 13.9 Plt Count 119 L MPV 13.4 H Immature Gran % (Auto) 0.5 Neut % (Auto) 75.6 H Lymph % (Auto) 18.4 [place] % (Auto) 4.3 Eos % (Auto) 0.8 Baso % (Auto) 0.4 Lymph # (Auto) 1.83 [place] # (Auto) 0.4 Eos # (Auto) 0.1 Baso # (Auto) 0.0 Abs Immat Gran (auto) 0.05 H Absolute Neuts (auto) 7.5 H Absolute Nucleated RBC 0.0 Nucleated RBC % 0.0 % Immature Plt Fraction 25.6 H RPR Non-reactive Blood Type B Positive Antibody Screen Negative OB - PN A/P Time Spent With Patient Time: Total time spent is greater than 50% in coordination of care (as documented) at patient's floor/unit and/or counseling patient:
--- NOTE | 2022-04-25 13:11 | PM.IMHP ---
H&P: HPI History of Present Illness Date/Time: 04/25/22 13:11 Chief Complaint: Medical induction of labor Narrative: Patient is a 31 y/o at 40 1/7 by EDC of 04/24/22 based on LMP 07/18/21 consistent with a 10 week ultrasound. PNC significant for LGA on a 34 week ultrasound. Labs reviewed. GBS neg. Review of Systems Review of Systems: All systems reviewed & are unremarkable except as noted in HPI and below Constitutional: Constitutional: Reports no additional constitutional complaints and Denies headache(s) Eyes: Eyes: Denies spots in vision ENT: Reports system reviewed and no additional complaints, except as documented and Denies headache(s) Cardiovascular: Cardiovascular: Denies chest pain and Denies dyspnea Respiratory: Respiratory: Denies dyspnea Gastrointestinal: Gastrointestinal: Reports no additional gastrointestinal complaints Genitourinary: Genitourinary: Reports amenorrhea Musculoskeletal: Musculoskeletal: Reports no additional musculoskeletal complaints Integumentary/Breasts: Skin/Breast: Denies breast mass and Denies rash Neurologic: Denies headache(s) Psychiatric: Psychiatric: Reports no additional psychiatric complaints [facility] Past Medical History Medical History Asthma History of herpes simplex infection Vaginal delivery x1 Surgical History Surgical History [place] teeth removed Family History Family History Mother Carcinoma of colon Father Heart attack Mother Colon cancer Social History Social History Smoking status: Never smoker Second hand tobacco smoke exposure: Yes Alcohol intake: former Alcohol use details: Not since Substance use: never Lack of Transportation: No Lack of Food: Never True Current Housing: I Have Housing Concerned About Future Housing: No Difficulty Paying Gas/Electric Bills: No Difficulty Paying for Meds: No Currently Unemployed: No Education: Bachelor's Degree Difficulty w/ Childcare or Family Care: No Living arrangements: with family Occupation/Education: occupation Gender identity (if verbalized by the patient): Female Sexual Orientation (if Verbalized by the Patient): Straight or Heterosexual Spiritual care concerns: No Meds Home Medications and Allergies Home Medications Medication Instructions Recorded Confirmed Type prenat.vits,hira,[id number] 1 tablet PO DAILY 09/21/21 04/25/22 History albuterol sulfate 90 mcg/actuation 2 puff inhalation QID PRN Wheezing 04/01/22 04/23/22 History aerosol inhaler Allergies Allergy/AdvReac Type Severity Reaction Status Date / Time No Known Allergies Allergy Verified 04/23/22 08:15 Vital Signs Vital Signs - 24 hr 04/25/22 07:05 04/25/22 07:16 04/25/22 07:17 Temperature 97.9 F Pulse Rate 95 Blood Pressure 138/92 H Pulse Oximetry Oxygen Delivery Room Air 04/25/22 07:30 04/25/22 07:45 04/25/22 08:00 Temperature Pulse Rate 96 96 95 Blood Pressure 134/83 139/73 127/72 Pulse Oximetry Oxygen Delivery 04/25/22 08:15 04/25/22 08:30 04/25/22 08:45 Temperature Pulse Rate 94 93 88 Blood Pressure 131/77 138/82 128/79 Pulse Oximetry Oxygen Delivery 04/25/22 09:00 04/25/22 09:15 04/25/22 09:32 Temperature 97 F L Pulse Rate 90 88 82 Blood Pressure 132/77 132/80 133/71 Pulse Oximetry Oxygen Delivery 04/25/22 09:45 04/25/22 10:00 04/25/22 10:15 Temperature Pulse Rate 88 85 86 Blood Pressure 139/81 122/83 127/83 Pulse Oximetry Oxygen Delivery 04/25/22 10:30 04/25/22 10:45 04/25/22 11:00 Temperature Pulse Rate 89 80 79 Blood Pressure 130/86 139/86 136/82 Pulse Oximetry Oxygen Delivery 04/25/22 11:03 04/25/22 11:15 04/25/22 11:22
[2022-04-25] MEDS: OXYTOCIN 30 UNITS/NS 500 ML 30 UNITS/500 ML BAG 125 UNITS IV CONT (14:40)
[2022-04-25] MEDS: WITCH HAZEL 40 PADS 1 PAD TOPICAL (16:24)
[2022-04-25] MEDS: BENZOCAINE 20% AER SPR (*SP) 56 GM CAN 1 SPRAY TOPICAL (16:24)
--- NOTE | 2022-04-25 16:55 | OBPPTRN ---
Patient transferred to post room #290 via wheelchair. Support person present. Oriented to unit, room, information board, rooming in, admission packet and security measures. Patient verbalizes understanding.
[2022-04-25] MEDS: IBUPROFEN 600 MG TABLET PO (23:45)
[2022-04-26 04:15] VITALS: BP 135/87; PULSE 86; RESP 18; TEMP 36.6
[2022-04-26 05:07] LABS: Hematocrit 38.6 % (37.0-47.0); Hemoglobin 13.2 g/dL (12.0-15.0)
[2022-04-26 07:55] VITALS: BP 132/83; PULSE 85; RESP 18; TEMP 36.9; O2SAT 97
--- NOTE | 2022-04-26 08:26 | PM.OBPRVD ---
OB - Delivery Note Procedure Delivery date: 04/25/22 Procedure: spontaneous vaginal delivery Induction method: Per Pitocin Protocol Delivery augmentation: Rupture of Membranes Delivery monitor: External FHT Route of delivery: Laceration Description: Perineal - 2nd Degree Delivery repair: vicryl ( 3 0 Vicryl) Specimen: No Anesthesia type: Epidural Disposition: Floor Complications: none Narrative: patient admitted for medical induction of labor with favorable cervix. She was started on Pitocin. She had assisted rupture of membranes clear. She progressed to complete. She delivered a female infant ADINA lorenz there was a compound hand presentation. Loose nuchal cord manually reduced. There was noted to be terminal meconium. was placed on maternal abdomen vigorously crying. Delayed cord clamping for 45 seconds until cord was a pulsatile and then the cord was doubly clamped and cut. She sustained a second-degree perineal laceration on the right which was repaired with 3-0 Vicryl. Baby Date of : 04/25/22 Time of : 14:00 Weeks of gestation at delivery: 40 gender: Female Weight (pounds): 8 Weight (ounces): 1 presentation: vertex position: Other ( Compound hand presentation) Placenta delivery description: Spontaneous Cord Vessel Description: 3 Vessels, Nuchal Cord, Loose, Clamped/Cut and Delayed Cord Clamping score one minute: 8 score five minutes: 9 AMG Delivery Billing Delivery Delivery: Delivery Charge ( date of delivery 04/25/2022)
--- NOTE | 2022-04-26 08:31 | PM.OBPNVD ---
OB - PN: Subj Subjective Date/time seen: 04/26/22 08:31 Interval history: Cat 1, AROM, clear, /-1. Continue pitocin. Patient comments: pain well controlled, tolerating diet and other (Decreasing lochia.) baby status: doing well and nursing well feeding status: exclusively breast feeding OB - PN: Obj Data Labs 04/26/22 04:17 Labs: Laboratory Results - last 24 hr 04/25/22 04/26/22 06:57 04:17 Hgb 13.2 Hct 38.6 RPR Non-reactive OB - PN A/P Assessment and Plan (1) Delivery normal: Code(s): O80 - Encounter for full-term uncomplicated delivery Status: Acute Plan she is doing well. Baby is doing well. She request discharge today. Plan day: 1 Plan: routine care Comments: Patient doing well. Time Spent With Patient Time: Total time spent is greater than 50% in coordination of care (as documented) at patient's floor/unit and/or counseling patient: Exam Psych: Affect: normal affect Other: Abd: fundus firm below umbilicus, nontender Perineum: healing Ext: nontender
--- NOTE | 2022-04-26 08:32 | PM.OBDSVD ---
DS: Admitting Diagnosis Discharge Date 04/26/2022 Admitting Diagnosis medical induction of labor DS: Discharge Diagnosis Discharge Diagnosis (1) Delivery normal: Code(s): O80 - Encounter for full-term uncomplicated delivery Status: Acute OB - DS: Summary Hospital Course Hospital Course: patient was admitted for medical induction of labor. She had Pitocin induction. She had an uncomplicated vaginal delivery. she did well was well ambulating well baby was doing well she requested discharge to home on day 1. Discharge precautions discussed. OB Procedures : Ultrasound OB Procedures Intrapartum: Spontaneous Vag Delivery OB Procedures: : None Peripartum Data Infant Delivery Method: Natural Vaginal complications: none Status at Discharge Functional status at discharge: independent ambulation Time Spent with Patient Time attestation: Total time spent providing and/or coordinating discharge services: Exam Const: General: cooperative Orientation/consciousness: oriented to person, oriented to place and oriented to time HENMT: Face/Nose/Sinus: Normal external nose present Eyes: General: appearance normal, both eyes and all related structures Resp: Effort & Inspection: normal respiratory effort GI: Inspection: normal to inspection Skin: General skin exam: normal color Neuro: General: oriented to person, oriented to place and oriented to time Extrem: General: normal to inspection and no calf tenderness Psych: Appearance: grossly normal Mental Status: mental status grossly normal DS: Data Data Completed and Pending Labs on day of discharge: Labs from last 24 hours 04/26/22 04/25/22 04:17 06:57 Hgb 13.2 Hct 38.6 RPR Non-reactive Discharge Plan Discharge Attending physician on discharge: Cornelius Melendrez Discharging Clinician: Cornelius Melendrez Anticipated Discharge Date/Time: 04/26/22 08:33 Patient Disposition: Home, Self-Care Activity: may shower and pelvic rest Diet: regular Patient Instructions: Antibiotic Form, Vaginal Delivery (DC), Vaginal Delivery (GEN) Stand Alone Forms: General Discharge Information Follow-up/Referrals: Cornelius Melendrez MD [Physician] - 4 Weeks Discharge Medications: Continued prenat.vits,hira,[id number] Tablet 1 tablet PO DAILY albuterol sulfate 90 mcg/actuation Hfa Aerosol Inhaler 2 puff INHALATION QID PRN (Reason: Wheezing) Date of admission: 04/25/22 06:26 Primary Care Provider: Nereyda,Art Cruz Admitting Provider: Cornelius Melendrez Attending physician on admission: Cornelius Melendrez Condition: Stable
[2022-04-26] MEDS: MULTIVIT/MIN/PREN/FOL AC/IRON TABLET 1 TAB PO (10:15)
[2022-04-26] MEDS: DOCUSATE SODIUM 100 MG CAPSULE PO (10:15)
[2022-04-26 12:13] VITALS: BP 120/72; PULSE 91; RESP 16; TEMP 37; O2SAT 98
--- NOTE | 2022-04-26 13:04 | PC.NURSE ---
[id number] Introductions were made, then consulted with patient to assess needs related to . Mother led the conversation with her?plans to feed?her infant and the?experience so far. Resources provided for inpatient and outpatient services with the feeding sheet, mom/baby guide and name written on the white board. Mother voiced understanding of information and requested assistance related to nipple shield use and not able to keep awake to breastfeed. Mother works well with her with encouragement and education. Encouraged understanding of the benefits of skin to skin (demonstrating unwrapping infant and placing upright on her chest), stimulating with massage touch, changing positions to encourage wakefulness, how to watch for early feeding cues, responsive feeding, feeding on demand (aiming for 8-12 times in 24 hours, about every 2-3 hours), milk production, building/maintaining a milk supply, duration of feeding, signs of adequate intake/output and how to record on the feeding sheet. Mother demonstrates her knowledge by placing the nipple shield onto her breast and latching her . Infant does not maintain sucking and does not pull the nipple into the nipple shield. Nipple shield was provided to mother prior to meeting due to mother practiced this method with the first child and ineffective . Reviewed good handwashing, cleaning the nipple shield and appropriate application of nipple shield to her breast. Discussed with mom the nipple shield precautions, possible complications associated with the risks and benefits. Reviewed practicing with a nipple shield, then without and how to protect the milk supply and production. Reviewed hand expression and practiced the technique. 7mls of thick, yellow colostrum was expressed and spoon/syringe fed to the infant. Mom voiced understanding of the importance of hand expression, nipple stimulation and initiating a pumping schedule if continues to nurse with the shield. Reviewed positioning and ear, shoulder, hip alignment, supporting the breast to facilitate a deep latch, asymmetrical latch (off-center), leading with the chin with a big, open, wide gape and body close to mother. latched to the left breast in cross cradle position with the nipple shield but not optimally. chomps on the shield. Without the shield doesn't latch. Approaches with a big open wide gape, then shuts the mouth with the nipple tip barely in the mouth sucking at the nipple. Education given to mother of how to visualize suck/swallow ratios and listen for drinking at the breast with none seen. Nipple care reviewed with optimal latch and good positioning. Reminding mother of comfort measures of healing with a warm and wet washcloth to rinse breast, then leave open to air-dry as needed. Reviewed good handwashing when or touching the breast/nipples to prevent infection. Resources used to facilitate learning were used with the QR codes, tool, mom and baby guide. Mother voiced understanding of skin to skin, stimulating with massage touch, responsive feedings, hand expressed colostrum, talking to infant to encourage if it has been 2 -2.5 hours since the start of the last , to call if does not latch, or if there is discomfort with . Resources provided for inpatient/outpatient with the office number on the feeding sheet and the mom/baby guide. Parents voiced understanding of information, demonstrated learning and will call if there is a request for assistance. Reported to the primary RN.
--- NOTE | 2022-04-26 14:55 | PC.NURSE ---
[id number] Consulted with mother after a request. Attempted to latch effectively. It appeared that infant may have sucked twice effectively at each breast without chomping , or loosing suction with a popping release of suction sound , and one swallow was heard after two sucks. The infants palate feels short and the tongue has a lower frenulum that is tight but infant can extend over the gumline to lap up colostrum off of the spoon. 5-7mls of thick, yellow colostrum were spoon fed encouraging infant to lap up while not crying. Mother voiced understanding of skin to skin, stimulating with massage touch, responsive feedings, hand expressed colostrum, talking to to encourage if it has been 2 -2.5 hours since the start of the last , to call if infant does not latch, or if there is discomfort with . Mother plans to initiate pumping when she gets home. Patient was to pump for comfort and nipple stretching/stimulation for adequate milk production every 3 hours (8 times in 24 hours) 1-2 times at night keeping the pump clean between pumping sessions. Reminded parents to use good handwashing technique to prevent infection. Mother is feeding appropriately for growth of and understands stimulating to eat if needed. has had adequate feedings in the last 24 hours meets the outcomes for weight, output and jaundice at this time. Mother states she is confident to continue attempting at home and pumping to feed her infant at home, when to call for assistance and denies any additional assistance or education at this time. Reinforced understanding of milk production, transition of milk, signs of adequate intake, transition of stool, prevention/relief of engorgement, responsive watching for feeding cues, the different methods of stimulating infant to breastfeed 2-3 hours after the start of the last feeding, community resources, medication information reviewed per [employer] and when to call a provider using the resource of the mom and baby guide/[facility] website. Mother voiced understanding of the education shared. Reported to the primary RN.
[2022-04-27 09:23] VITALS: BP 130/71; PULSE 91; RESP 18; TEMP 37; O2SAT 100
== END 2022-04-26 16:15 | disposition home or self-care (01) | DRG 807 ==
LOC: ANHLDR 06:30 → ANHOB2 17:07
PROVIDERS: Admitting Provider Obstetrics & Gynecology; PCP Family Medicine; Visit Provider Obstetrics & Gynecology
DX: O36.63X0 Maternal care for excessive fetal growth, third trimester, not applicable or unspecified (principal); Z37.0 Single live birth; Z3A.40 40 weeks gestation of pregnancy; O32.6XX0 Maternal care for compound presentation, not applicable or unspecified; O36.8330 Maternal care for abnormalities of the fetal heart rate or rhythm, third trimester, not applicable or unspecified; O70.1 Second degree perineal laceration during delivery; O69.81X0 Labor and delivery complicated by cord around neck, without compression, not applicable or unspecified; O77.0 Labor and delivery complicated by meconium in amniotic fluid
CPT/HCPCS: 36415; 59025; 76815; 76819; 85014; 85018; 85025; 85055; 86592; 86850; 86900; 86901; A9270; J2590; J2795; J7120

== ENCOUNTER 2022-08-22 13:04 | Outpatient (RCR) | payer OTHER, SELFPAY ==
--- NOTE | 2022-07-16 14:16 | PC.NURSE ---
girl Benjamin In- [id number] Out- [id number] Reason for visit: Latch issues History: Mother delivered vaginally on 04/25/22. A nipple shield tool was used on/off during the inpatient stay related to smooth nipples. History: Upper lip frenulum is tight and appears to connect to the upper gumline. Observations: Infant latched effectively and breastfed with no pain to mother. Infant detaches when breast is let go related to being too heavy for to hold with her mouth. Reminded mother to latch effectively, then support her arm well to keep close to the breast to assist with maintaining a deep latch. weight: 3660g Lowest weight: 3305g Last weight: Mother states infant is just over 12 lbs. Infant is well nourished, alert, active, and smiles with curiosity. Plan of Care: Mother plans to latch effectively, then support a great latch to assist with maintaining a deep latch. Follow up plans: Mother voiced understanding of when to call her OB or the ICP.
== END 2022-10-14 23:59 | disposition home or self-care (01) ==
LOC: ANHOBOP 13:04
PROVIDERS: PCP Family Medicine; Visit Provider Pediatrics
DX: O92.13 Cracked nipple associated with lactation (principal)
CPT/HCPCS: 99212; G0463

== ENCOUNTER 2022-11-11 08:34 | Emergency (ER) | payer OTHER, SELFPAY ==
[2022-11-11 08:53] VITALS: BP 123/68; PULSE 72; RESP 16; TEMP 36; O2SAT 99
--- NOTE | 2022-11-11 09:09 | ED.FEMALEGU ---
HPI - Female Genitourinary General Chief complaint: Urogenital-Female Stated complaint: symptoms of yeast infection Time Seen by Provider: 11/11/22 09:09 Source: patient, RN notes reviewed and old records reviewed Mode of arrival: ambulatory Limitations: no limitations History of Present Illness HPI Narrative: 32-year-old female presents to the [facility] with concerns for a yeast infection. Patient reports burning vaginally that started 2 days ago. No treatment prior to arrival Gave for 6 months ago. No period Since prior to to becoming . Currently Onset (ago): day(s) (2) Related Data Home Medications Medication Instructions Recorded Confirmed prenat.vits,hira,[id number] 1 tablet PO DAILY 09/21/21 11/11/22 albuterol sulfate 90 mcg/actuation 2 puff inhalation QID PRN Wheezing 04/01/22 04/23/22 aerosol inhaler Allergies Allergy/AdvReac Type Severity Reaction Status Date / Time No Known Allergies Allergy Verified 11/11/22 09:14 Review of Systems Review of Systems: All systems reviewed & are unremarkable except as noted in HPI and below Constitutional: Constitutional: Reports no additional constitutional complaints Eyes: Eyes: Reports no additional eye complaints ENT: Reports system reviewed and no additional complaints, except as documented Cardiovascular: Cardiovascular: Reports no additional cardiovascular complaints, Denies chest pain and Denies dyspnea Respiratory: Respiratory: Reports no additional respiratory complaints, Denies chest congestion, Denies cough and Denies dyspnea Gastrointestinal: Gastrointestinal: Reports no additional gastrointestinal complaints, Denies abdominal pain, Denies nausea and Denies vomiting Genitourinary: Genitourinary: Reports as per HPI, Reports genital pruritis and Denies genital lesions Musculoskeletal: Musculoskeletal: Reports no additional musculoskeletal complaints Integumentary/Breasts: Skin/Breast: Reports system reviewed and no additional complaints, except as docu Neurologic: Reports system reviewed and no additional complaints, except as documented Psychiatric: Psychiatric: Reports no additional psychiatric complaints Allergic/Immunologic: Allergic/Immunologic: Reports no additional allergic/immunologic complaints PMFSH Past Medical History Medical History Asthma History of herpes simplex infection Vaginal delivery x2 Surgical History Surgical History [place] teeth removed Family History Family History Mother Carcinoma of colon Father Heart attack Mother Colon cancer Social History Social History Smoking status: Never smoker Second hand tobacco smoke exposure: Yes Alcohol intake: former Alcohol use details: Not since Substance use: never Lack of Transportation: No Lack of Food: Never True Current Housing: I Have Housing Concerned About Future Housing: No Difficulty Paying Gas/Electric Bills: No Difficulty Paying for Meds: No Currently Unemployed: No Education: Bachelor's Degree Difficulty w/ Childcare or Family Care: No Living arrangements: with family Occupation/Education: occupation Gender identity (if verbalized by the patient): Female Sexual Orientation (if Verbalized by the Patient): Straight or Heterosexual Spiritual care concerns: No Comments At the time of my signature, I reviewed and agree with the nursing past medical, surgical, social, and family history. There is no relevant family history pertinent to the patient complaint. Exam Const: General: cooperative, healthy appearing, comfortable, no acute distress, well developed, alert and well nourished Nutritional Appearance: well nourished Orientation/consciousness: patient oriented x3
== END 2022-11-11 09:44 | disposition home or self-care (01) ==
PROVIDERS: Emergency Provider Nurse Practitioner; PCP Family Medicine
DX: N76.0 Acute vaginitis (principal); J45.909 Unspecified asthma, uncomplicated
CPT/HCPCS: 81025; 99213; G0463

== ENCOUNTER → 2023-02-06 13:40 | Outpatient (CLI) | payer OTHER, SELFPAY ==
--- NOTE | ~2023-02-06 | US_ITS ---
EXAMINATION: US thyroid DATE: 02/06/2023 13:53 INDICATION: Nontoxic goiter, unspecified. TECHNIQUE: Multiple ultrasound images of the thyroid were obtained. COMPARISON: None. FINDINGS: The right thyroid lobe measures 5.0 x 1.9 x 1.7 cm. The left thyroid lobe measures 5.0 x 1.6 x 1.8 c m. The thyroid demonstrates heterogeneous echogenicity and increased vascularity. No discrete nodule . IMPRESSION: 1. Heterogeneous, hypervascular thyroid, consistent with chronic lymphocytic (Frances) thyroiditis. Reviewed, dictated and finalized at location E. TRAFFICKER IMPRESSION: 1. Heterogeneous, hypervascular thyroid, consistent with chronic lymphocytic (H ashimoto) thyroiditis.
== END ==
PROVIDERS: PCP Obstetrics & Gynecology; Visit Provider Obstetrics & Gynecology
DX: E04.9 Nontoxic goiter, unspecified (principal)
CPT/HCPCS: 76536

== ENCOUNTER 2023-02-06 14:07 | Outpatient (CLI) | payer OTHER, SELFPAY ==
[2023-02-06 17:31] LABS: Free T4 Free Thyroxine Reflex 0.76 ng/dL (0.78-2.19)
== END 2023-02-06 14:08 | disposition home or self-care (01) ==
LOC: ANHLAB 14:09
PROVIDERS: PCP Obstetrics & Gynecology; Visit Provider Obstetrics & Gynecology
DX: E04.9 Nontoxic goiter, unspecified (principal)
CPT/HCPCS: 36415; 84439; 84443

== ENCOUNTER 2023-04-27 16:16 | Emergency (ER) | payer OTHER, SELFPAY ==
[2023-04-27 16:36] VITALS: BP 123/73; PULSE 87; RESP 16; TEMP 36.8; O2SAT 99
--- NOTE | 2023-04-27 16:58 | ED.FEMALEGU ---
HPI - Female Genitourinary General Chief complaint: Urogenital-Female Stated complaint: Urinary Problems Time Seen by Provider: 04/27/23 16:58 Source: patient, RN notes reviewed and old records reviewed Mode of arrival: ambulatory Limitations: no limitations History of Present Illness HPI Narrative: 32-year-old female presents to the [facility] with complaints of urinary symptoms since Friday. Patient reports burning at the end of the stream low back pain, lower suprapubic cramping. Patient states that the symptoms were not that bad, became worse this afternoon. Has had intermittent nausea without vomiting Patient currently breast feeding Onset (ago): day(s) (5) Related Data Allergies Allergy/AdvReac Type Severity Reaction Status Date / Time No Known Allergies Allergy Verified 04/27/23 16:26 Review of Systems Review of Systems: All systems reviewed & are unremarkable except as noted in HPI and below Constitutional: Constitutional: Reports no additional constitutional complaints Eyes: Eyes: Reports no additional eye complaints ENT: Reports system reviewed and no additional complaints, except as documented Cardiovascular: Cardiovascular: Reports no additional cardiovascular complaints, Denies chest pain and Denies dyspnea Respiratory: Respiratory: Reports no additional respiratory complaints, Denies chest congestion, Denies cough and Denies dyspnea Gastrointestinal: Gastrointestinal: Reports no additional gastrointestinal complaints, Denies abdominal pain, Denies nausea and Denies vomiting Genitourinary: Genitourinary: Reports as per HPI Musculoskeletal: Musculoskeletal: Reports no additional musculoskeletal complaints Integumentary/Breasts: Skin/Breast: Reports system reviewed and no additional complaints, except as docu Neurologic: Reports system reviewed and no additional complaints, except as documented Psychiatric: Psychiatric: Reports no additional psychiatric complaints Allergic/Immunologic: Allergic/Immunologic: Reports no additional allergic/immunologic complaints [facility] Past Medical History Medical History Asthma History of herpes simplex infection Vaginal delivery x2 Surgical History Surgical History [place] teeth removed Family History Family History Mother Carcinoma of colon Father Heart attack Mother Colon cancer Social History Social History Smoking status: Never smoker Second hand tobacco smoke exposure: Yes Alcohol intake: former Alcohol use details: Not since Substance use: never Lack of Transportation: No Lack of Food: Never True Current Housing: I Have Housing Concerned About Future Housing: No Difficulty Paying Gas/Electric Bills: No Difficulty Paying for Meds: No Currently Unemployed: No Education: Bachelor's Degree Difficulty w/ Childcare or Family Care: No Living arrangements: with family Occupation/Education: occupation Gender identity (if verbalized by the patient): Female Sexual Orientation (if Verbalized by the Patient): Straight or Heterosexual Spiritual care concerns: No Comments At the time of my signature, I reviewed and agree with the nursing past medical, surgical, social, and family history. There is no relevant family history pertinent to the patient complaint. Exam Const: General: cooperative, healthy appearing, comfortable, no acute distress, well developed, alert and well nourished Nutritional Appearance: well nourished Orientation/consciousness: patient oriented x3 Limitations: no limitations HENMT: Head: normal to inspection Ears: hearing grossly normal bilaterally and external ears normal Face/Nose/Sinus: Normal external nose present, Normal nares present, Normal nasal mucous membranes
== END 2023-04-27 17:09 | disposition home or self-care (01) ==
PROVIDERS: Emergency Provider Nurse Practitioner; PCP Obstetrics & Gynecology
DX: N39.0 Urinary tract infection, site not specified (principal); B96.20 Unspecified Escherichia coli [E. coli] as the cause of diseases classified elsewhere; J45.909 Unspecified asthma, uncomplicated
CPT/HCPCS: 81003; 87077; 87086; 87186; 99213; G0463

== ENCOUNTER 2023-06-29 09:32 | Emergency (ER) | payer OTHER, SELFPAY ==
[2023-06-29 09:42] VITALS: BP 119/72; PULSE 74; RESP 18; TEMP 36.3; O2SAT 100
--- NOTE | 2023-06-29 09:42 | ED.GENADULT ---
HPI - General Adult General Chief complaint: Urogenital-Female Stated complaint: Female Urogenital Source: patient, RN notes reviewed and old records reviewed Mode of arrival: ambulatory Limitations: no limitations History of Present Illness HPI narrative: 33-year-old female [facility] complaining burning with urination, cloudy urine, lower back pain this started yesterday. Patient states gets frequent UTIs. States last 1 was approximately 1 month ago. Related Data Allergies Allergy/AdvReac Type Severity Reaction Status Date / Time No Known Allergies Allergy Verified 06/29/23 09:45 Review of Systems Constitutional: Constitutional: Reports no additional constitutional complaints, Denies body ache(s), Denies chills, Denies fatigue, Denies fever(s) and Denies headache(s) Eyes: Eyes: Reports no additional eye complaints and Denies blurry vision ENT: Reports system reviewed and no additional complaints, except as documented, Denies vertigo, Denies dizziness, Denies ear discharge, Denies otalgia, Denies facial pain, Denies headache(s), Denies nasal congestion, Denies nasal discharge, Denies sinus pain, Denies sinus pressure and Denies sore throat Cardiovascular: Cardiovascular: Reports no additional cardiovascular complaints, Denies chest pain, Denies chest pain at rest, Denies rapid heart rate and Denies dyspnea Respiratory: Respiratory: Reports no additional respiratory complaints, Denies chest congestion, Denies cough, Denies pain on inspiration, Denies pain with cough and Denies dyspnea Gastrointestinal: Gastrointestinal: Denies abdominal pain, Denies diarrhea, Denies nausea and Denies vomiting Genitourinary: Genitourinary: Reports as per HPI, Reports nocturia and Reports dysuria Musculoskeletal: Musculoskeletal: Reports back pain Integumentary/Breasts: Skin/Breast: Denies rash Neurologic: Reports system reviewed and no additional complaints, except as documented, Denies vertigo, Denies dizziness and Denies headache(s) Endocrine: Endocrine: Denies fatigue PMFSH Past Medical History Medical History Asthma History of herpes simplex infection Vaginal delivery x2 Surgical History Surgical History [place] teeth removed Family History Family History Mother Carcinoma of colon Father Heart attack Mother Colon cancer Social History Social History Smoking status: Never smoker Second hand tobacco smoke exposure: Yes Alcohol intake: former Alcohol use details: Not since Substance use: never Lack of Transportation: No Lack of Food: Never True Current Housing: I Have Housing Concerned About Future Housing: No Difficulty Paying Gas/Electric Bills: No Difficulty Paying for Meds: No Currently Unemployed: No Education: Bachelor's Degree Difficulty w/ Childcare or Family Care: No Living arrangements: with family Occupation/Education: occupation Gender identity (if verbalized by the patient): Female Sexual Orientation (if Verbalized by the Patient): Straight or Heterosexual Spiritual care concerns: No Comments At the time of my signature, I reviewed and agree with the nursing past medical, surgical, social, and family history. There is no relevant family history pertinent to the patient complaint. Exam Const: General: cooperative, healthy appearing, no acute distress and well nourished Nutritional Appearance: well nourished Orientation/consciousness: patient oriented x3 Limitations: no limitations HENMT: Head: normal to inspection and normocephalic Ears: external ears normal Face/Nose/Sinus: normal facial exam Face and sinus: normal facial exam Mouth: Yes Normal oral and palatal mucosa present, Yes oropharynx normal and Yes moist
== END 2023-06-29 09:57 | disposition home or self-care (01) ==
PROVIDERS: Emergency Provider Registered Nurse
DX: N30.01 Acute cystitis with hematuria (principal); B37.31 Acute candidiasis of vulva and vagina; T36.95XA Adverse effect of unspecified systemic antibiotic, initial encounter; J45.909 Unspecified asthma, uncomplicated
CPT/HCPCS: 81003; 87086; 87088; 99213; G0463

== ENCOUNTER 2023-09-11 11:29 | Outpatient (CLI) | payer OTHER, SELFPAY ==
[2023-09-11 12:52] LABS: Free T4 Free Thyroxine 0.75 ng/mL (0.78-2.19)
[2023-09-15 08:04] LABS: Thyroid Peroxidase Antibodies >900 IU/mL (<9)
== END 2023-09-11 11:30 | disposition home or self-care (01) ==
LOC: ANHLAB 11:31
PROVIDERS: Visit Provider Internal Medicine
DX: E04.9 Nontoxic goiter, unspecified (principal); E03.9 Hypothyroidism, unspecified
CPT/HCPCS: 36415; 84439; 84443; 86376

== ENCOUNTER 2023-09-18 13:08 | Emergency (ER) | payer OTHER, SELFPAY ==
[2023-09-18 13:18] VITALS: BP 121/68; PULSE 81; RESP 18; TEMP 36.8; O2SAT 100
--- NOTE | 2023-09-18 13:25 | ED.ANIMALBIT ---
HPI - Animal Bite General Chief Complaint: Animal Bite Stated Complaint: Dog Bite Time Seen by Provider: 09/18/23 13:26 History of Present Illness HPI narrative: Patient presents with complaints of dog bite to left posterior calf. She reports that she was out on a walk at about 11 30 this morning, a strange dog bit her on the leg. She has 1 single shallow puncture to the left leg. She reports she did not wash the site prior to seeking care. She states she is up-to-date on her tetanus. She voices no other concerns or complaints today. Related Data Home Medications Medication Instructions Recorded Confirmed No Home Medications 09/18/23 09/18/23 Allergies Allergy/AdvReac Type Severity Reaction Status Date / Time No Known Allergies Allergy Verified 09/18/23 13:30 Review of Systems Review of Systems: All systems reviewed & are unremarkable except as noted in HPI and below Constitutional: Constitutional: Reports no additional constitutional complaints ENT: Reports system reviewed and no additional complaints, except as documented Cardiovascular: Cardiovascular: Reports no additional cardiovascular complaints Respiratory: Respiratory: Reports no additional respiratory complaints Integumentary/Breasts: Skin/Breast: Reports as per [facility]PI [facility] Past Medical History Medical History Asthma History of herpes simplex infection Vaginal delivery x2 Surgical History Surgical History [place] teeth removed Family History Family History Mother Carcinoma of colon Father Heart attack Mother Colon cancer Thyroid disease Social History Social History Smoking status: Never smoker Second hand tobacco smoke exposure: Yes Alcohol intake: former Alcohol use details: Not since Substance use: never Lack of Transportation: No Lack of Food: Never True Current Housing: I Have Housing Concerned About Future Housing: No Difficulty Paying Gas/Electric Bills: No Difficulty Paying for Meds: No Currently Unemployed: No Education: Bachelor's Degree Difficulty w/ Childcare or Family Care: No Living arrangements: with family Occupation/Education: occupation Gender identity (if verbalized by the patient): Female Sexual Orientation (if Verbalized by the Patient): Straight or Heterosexual Spiritual care concerns: No Exam Const: General: cooperative, no acute distress, alert and awake Orientation/consciousness: oriented to person, oriented to place and oriented to time HENMT: Head: normal to inspection Resp: Effort & Inspection: normal respiratory effort and able to speak in complete sentences Auscultation: clear to auscultation bilaterally, no crackles, no rales, no rhonchi and no wheezes Cardio: Palpation: normal PMI Rate: regular rate Rhythm: regular rhythm Heart sounds: S1 normal heart sound present and S2 normal heart sound present Skin: Full body images: 1. single shallow puncture wound, no surrounding bruising Neuro: General: oriented to person, oriented to place and oriented to time Cranial nerves: Yes CN's II-XII intact bilaterally Psych: Appearance: grossly normal Thought process: Normal thought process present Insight: Good insight present (Psych) Judgement: Good judgement present (Psych) Course Course Level of Care: Express Care Visit Vital Signs Vital signs: Vital Signs Temperature 98.2 F 09/18/23 13:18 Pulse Rate 81 09/18/23 13:18 Respiratory Rate 18 09/18/23 13:18 Blood Pressure 121/68 09/18/23 13:18 Pulse Oximetry 100 09/18/23 13:18 Oxygen Delivery Room Air 09/18/23 13:18 Temperature 98.2 F 09/18/23 13:18 Pulse Rate 81 09/18/23 13:18 Respiratory Rate 18 09/18/23 13:18 Blood Pressure 121
== END 2023-09-18 13:38 | disposition home or self-care (01) ==
PROVIDERS: Emergency Provider Nurse Practitioner Family
DX: S81.832A Puncture wound without foreign body, left lower leg, initial encounter (principal); W54.0XXA Bitten by dog, initial encounter; J45.909 Unspecified asthma, uncomplicated
CPT/HCPCS: 99212; G0463

== ENCOUNTER 2023-11-19 12:42 | Outpatient (CLI) | payer OTHER, SELFPAY ==
--- NOTE | ~2023-11-19 | MR_ITS ---
EXAMINATION: MR pituitary wo/w con DATE: 11/19/2023 13:53 INDICATION: Secondary hypothyroidism. TECHNIQUE: Magnetic resonance imaging (MRI) of the brain and brainstem was performed without and with 13 mL MultiHance intravenous contrast. COMPARISON: None. FINDINGS: The pituitary is normal in size with height of 7 mm and concave superior margin. There is n o intracranial hemorrhage, acute infarction, or abnormal intracranial mass lesion. The ventricles are normal in size. There is mild mucosal thickening in the paranasal sinuses. The mastoid air cells are normal. The orbits are normal. IMPRESSION: 1. Normal brain. Normal pituitary. Reviewed, dictated and finalized at location A.
== END 2023-11-19 12:43 | disposition home or self-care (01) ==
LOC: MICIMG 12:43
PROVIDERS: PCP Internal Medicine; Visit Provider Internal Medicine
DX: E03.9 Hypothyroidism, unspecified (principal)
CPT/HCPCS: 70553; A9577

== ENCOUNTER 2024-07-05 13:26 | Emergency (ER) | payer OTHER, SELFPAY ==
--- NOTE | 2024-07-05 13:33 | ED_ITS ---
HPI - URI/Sore Throat General Chief Complaint: Upper Respiratory Infection Stated Complaint: cough and sob Time Seen by Provider: 07/05/24 13:44 Source: patient and RN notes reviewed Mode of arrival: ambulatory Limitations: no limitations History of Present Illness HPI Narrative: 34-year-old female presents concern for 3 week history of cough, runny nose, stuffy nose. Reports she has tried [id number] medications without relief. Reports she had general malaise and fever the any of her course of illness with no longer does. MD elicited complaint: cough and nasal congestion Related Data Home Medications ?Medication ?Instructions ?Recorded ?Confirmed ?Last Taken ?Type levonorgestrel 17.5 mcg/24 hr (up 1 device intrauterine ONCE 03/31/24 05/07/24 Unknown History to 5 yrs) 19.5mg intrauterine device (Kyleena) Allergies Allergy/AdvReac Type Severity Reaction Status Date / Time No Known Allergies Allergy Verified 07/05/24 13:39 Review of Systems Review of Systems: CONSTITUTIONAL: Denies malaise, chills, sweats, or fever. EYES: Denies visual changes, redness, or discharge. ENT: Reports rhinorrhea, congestion, sinus pain. Denies otalgia and sore throat. CARDIOVASCULAR: Denies chest pain, palpitations, or edema. RESPIRATORY: Reports cough. Denies dyspnea. GASTROINTESTINAL: Denies abdominal pain, nausea, vomiting, diarrhea SKIN: Denies rash or itching. MUSCULOSKELETAL: Denies myalgia. NEUROLOGIC: Reports headache. All systems reviewed & are unremarkable except as noted in HPI and below PMFSH Past Medical History Medical History Vaginal delivery x2 Asthma History of herpes simplex infection Surgical History Surgical History [place] teeth removed Family History Family History Mother Carcinoma of colon Father Heart attack Mother Colon cancer Thyroid disease Social History Social History Smoking status: Never smoker Second hand tobacco smoke exposure: Yes Alcohol intake: former Alcohol use details: Not since Substance use: never Lack of Transportation: No Lack of Food: Never True Current Housing: I Have Housing Concerned About Future Housing: No Difficulty Paying Gas/Electric Bills: No Difficulty Paying for Meds: No Currently Unemployed: No Education: Bachelor's Degree Difficulty w/ Childcare or Family Care: No Living arrangements: with family Occupation/Education: occupation Gender identity (if verbalized by the patient): Female Sexual Orientation (if Verbalized by the Patient): Straight or Heterosexual Spiritual care concerns: No Comments At time of signature, agree with nursing past medical, surgical, social and family history. There is no relevant family history pertinent to the presenting complaint Exam Narrative: GENERAL: Well-appearing, well-nourished, and in no acute distress. HEAD: Normocephalic EYES: PERRLA, conjunctivae clear ENT: Nares clear, turbinates edematous and erythematous. Mucous membranes moist. TM pearly negron with dull light reflex bilaterally; no tragal tenderness. Oropharynx not erythematous without lesions. Tonsils not enlarged and without exudate, no drooling, no hoarseness, no trismus, uvula midline. NECK: Supple. No lymphadenopathy CHEST: Clear to auscultation, breath sounds equal. No wheezing, rhonchi, rales, or stridor. No respiratory distress, speaks in full sentences. HEART: Regular rate and rhythm. No murmur heard. SKIN: Warm, dry, no rash. NEURO: Alert and oriented x3. PSYCH: Normal mood and affect Course Course Emergency Course: Patient is aware of diagnosis, understands and agrees to treatment plan. Anticipatory guidance given. Patient agrees to follow-up as directed and is aware of reasons to seek care at the emergency department. Portions of this record may have been created with voice recognition software Level of Care: Express Care Visit Vital Signs Vital signs: Reviewed. MDM - URI/Sore Throat MDM Narrative Medical decision making narrative: Differential diagnosis considered: Pastor virus, strep pharyngitis, allergic rhinitis, upper respiratory tract infection, sinusitis, rhinosinusitis, nasopharyngitis. viral pharyngitis, otitis media, otitis externa, pneumonia, bronchitis, viral cough syndrome, viral syndrome, and influenza. Exam findings show no acute concerns or changes; patient is non-toxic appearing and is in no distress. Patient is appropriate for outpatient treatment and follow-up. Lab Data Attestation: I reviewed the patient's lab results. Critical Care Time Critical Care Time Critical Care Time: No Discharge Plan Discharge Clinical Impression: Sinobronchitis Patient Disposition: Home Condition: Stable Instructions: Antibiotic Form, Sinusitis (ED), Acute Bronchitis (ED) Additional Instructions: Viral illness may last between 7-21 days; antibiotics do not cure viral illness and are NOT recommended at this time. Recommend antihistamine such as Benadryl at night time and Zyrtec or Olivia during the day Cough syrup may cause drowsiness; avoid driving or take it at night time. Use inhaler as needed for cough, wheezing, shortness of breath or chest tightness. Also, recommend symptomatic treatment includes: rest, fluids, and increase humidity of the air at home. Recommend Acetaminophen as directed on the bottle to reduce fever, pain, headache. Avoid smoking/second-hand smoke. Please schedule a follow-up visit with your personal physician for further evaluation and treatment within 3-5days. Including recheck and discussion of your blood pressure. If your symptoms persist, change or worsen significantly before you can contact your personal physician then please, without delay, go to the emergency department for further evaluation. Patient Language: Icelandic Prescriptions: New promethazine-DM 6.25-15 mg/5 mL syrup 5 ml PO Q4-6H PRN (Reason: cough) Qty: 120 0RF methylprednisolone [Medrol (Francesco)] 4 mg tablets,dose pack See Rx Instructions .ROUTE .COMPLEX Qty: 21 0RF Rx Instructions: orally per package directions amoxicillin-pot clavulanate 875-125 mg tablet 1 tablet PO Q12H 10 Days Qty: 20 0RF No Action Kyleena 17.5 mcg/24 hr (5 yrs) 19.5 mg intrauterine device 1 device intrauterine ONCE Rx Instructions: as a single dose Follow-up/Referrals: UNKNOWN,DOCTOR [Primary Care Provider] - Time of Disposition: 13:49
[2024-07-05 13:38] VITALS: BP 125/61; PULSE 90; RESP 18; TEMP 36.3; O2SAT 99
--- OUTSIDE RECORDS SUMMARY | 2024-07-05 14:05 | XMS_ITS | Clinical Summary ---
Author Organization [employer] [address] - [address] Address [address] [facility] [address] [place] [address] Phone Care Team Providers Care Research Physiologist Name Role Phone Unavailable Primary Care Provider Unavailabl e Social History Tobacco Use Types Packs/Day Years Used Date Smoking Tobacco: Never Assessed Comments Unknown Sex and Gender Information Value Date Recorded Sex Assigned at Not on file Legal Sex Female 3:12 PM CDT Gender Identity Not on file Sexual Orientation Not on file Plan of Treatment Health Maintenance Due Date Last Done Comments DTAP/TDAP/TD VACCINES (1 - Tdap) 2009 HEPATITIS B VACCINES (1 of 3 - 19+ 3-dose series) 2009 HPV/Cotest (21-29) 06/08/2011 CERVICAL CANCER SCREENING 2020 HPV/Cotest (30-65) 2020 PAP SMEAR 2020 INFLUENZA VACCINE (#1) 2023 HPV VACCINES Aged Out No longer eligi ble based on patient's age to complete this topic Insurance [facility] [id number]
--- OUTSIDE RECORDS SUMMARY | 2024-07-05 14:05 | XMS_ITS | Clinical Summary ---
Author Organization [facility] Address [address] [place] [id number] Care Team Providers Care Health Administration Teacher Name Role Phone Baron Blackmon MD Primary Care Provider [phone] Medications probiotic (FLORAJEN3) Cap capsule Take 1 capsule by mouth daily. Active vitamin ( PLUS) 27-1 MG tablet Take 1 tablet by mouth daily. Active Family History Medical History Relation Comments Heart Attack Father Cancer Mother Relation Status Comments Father Alive Mother Alive Social History Tobacco Use Types Packs/Day Years Used Date Smoking Tobacco: Never Passive Smoke Exposure: Never Tobacco Cessation:Counseling Given: No Alcohol Use Standard Drinks/Week Comments Not Currently 0 (1 standard drink = 0.6 oz pur e alcohol) PHQ-2 Answer Date Recorded Patient Health Questionnaire-2 Score 0 03/21/2023 Comments Unknown Sex and Gender Information Value Date Recorded Sex Assigned at Not on file Legal Sex Female 7:38 PM CDT Gender Identity Not on file Sexual Orientation Not on file Last Filed Vital Signs Vital Sign Reading Time Taken Comments Blood Pressure 123/69 03/21/2023 2:10 PM PRACTICE MANAGER Pulse 81 03/21/2023 2:10 PM PRACTICE MANAGER Temperature 36.8 C (98.3 F) 03/21/2023 2:10 PM PRACTICE MANAGER Respiratory Rate 16 03/21/2023 2:10 PM PRACTICE MANAGER Oxygen Saturation 97% 03/21/2023 2:10 PM PRACTICE MANAGER Inhaled Oxygen Concentration - - Weight 65 kg (143 lb 3.2 oz) 03/21/2023 2:10 PM PRACTICE MANAGER Height 160 cm (5' 3 ) 03/21/2023 2:10 PM PRACTICE MANAGER Body Mass Index 25.37 03/21/2023 2:10 PM PRACTICE MANAGER Plan of Treatment Health Maintenance Due Date Last Done Comments Annual Physical 1993 Hepatitis C 2008 Hepatitis B Vaccines (1 of 3 - 19+ 3-dose series) 2009 Cervical Cancer Screening Pa p Smear (Age 30 to 64) Every 3 Years 12/06/2019 12/05/2016 Cervical Cancer Screening Pa p with HPV Testing (Age 30 to 64) Every 5 Years 2020 11/28/2015 Cervical Cancer Screening wi th HPV 2020 COVID-19 Vaccine (3 - 2023-2 5 season) 2023 10/02/2021, 06/12/2020 PHQ-2 (Physician [place]) 03/03/2024 03/21/2023 DTaP, Tdap and Td Vaccines ( 3 - Td or Tdap) 03/21/2032 03/21/2022, 03/28/2019 HPV Vaccines Aged Out No longer eligi ble based on patient's age to complete this topic Meningococcal B Vaccine Aged Out No l onger eligible based on patient's age to complete this topic Meningococcal Vaccine Aged Out No emil tenzin eligible based on patient's age to complete this topic Pneumococcal Vaccine: Pediatrics (0 to 5 Years) and At-Risk Patients (6 to 49 Years) Aged Out No longer eligible b ased on patient's age to complete this topic RSV Immunizations Under 20 Months Aged Out No longer eligible b ased on patient's age to complete this topic Procedures Procedure Name Priority Date/Time Associated Diagnosis Comments OUTSIDE CYTOPATH CERV/VAG INTERPRET (PAP) (SCAN ORDER) 12/05/2016 OUTSIDE CYTOPATH CERV/VAG INTERPRET (PAP) 11/28/2015 from Last 3 Months or Most Recently Relevant to Health Maintenance Results * OUTSIDE CYTOPATH CERV/VAG INTERPRET (PAP) (12/05/2016) 12/05/2016 Narrative 12/05/2016 Ordered by an unspecified provider. us Documents Scanned SCANNING Final Result * OUTSIDE CYTOPATH VAG/CERV PAP WITH HPV (11/28/2015) 11/28/2015 Narrative 11/28/2015 Ordered by an unspecified provider. us Documents Scanned SCANNING Final Result from Last 3 Months or Most Recently Relevant to Health Maintenance Insurance [facility] Care Teams Health Administration Teacher Relationship Specialty Start Date End Date Baron Blackmon MD [address] [place] [id number] PCP - General FAMILY PRACTICE 03/19/23
== END 2024-07-05 13:56 | disposition home or self-care (01) ==
PROVIDERS: Emergency Provider Nurse Practitioner
DX: J32.9 Chronic sinusitis, unspecified (principal); J40 Bronchitis, not specified as acute or chronic; J45.909 Unspecified asthma, uncomplicated
CPT/HCPCS: 99213; G0463

== ENCOUNTER 2024-07-29 08:50 | Emergency (ER) | payer OTHER, SELFPAY ==
[2024-07-29 08:58] VITALS: BP 124/67; PULSE 75; RESP 16; TEMP 36.2; O2SAT 99
--- OUTSIDE RECORDS SUMMARY | 2024-07-29 08:58 | XMS_ITS | Clinical Summary ---
Author Organization [employer] [address] - [birth year]22 Address [address] [facility] [address] [place] [address] Phone Care Team Providers Care De Alcholizer Name Role Phone Unavailable Primary Care Provider [...] patient's age to complete this topic Insurance [facility] [id number]
[2024-07-29 09:11] LABS: EDUAAPPEAR Cloudy; EDUABILI Negative (Negative); EDUABLOOD 2+ (Negative); EDUACOLOR1 Yellow; EDUAGLUCOSE Negative (Negative); EDUAKETONE Negative (Negative); EDUALEUKO 3+ (Negative); EDUANITRATE Negative (Negative); EDUAPROTEIN Negative (Negative); EDUAUROBILI 0.2
--- NOTE | 2024-07-29 09:21 | ED_ITS ---
HPI - Female Genitourinary General Chief complaint: Urogenital-Female Stated complaint: uti Time Seen by Provider: 07/29/24 09:15 Source: patient and RN notes reviewed Mode of arrival: ambulatory Limitations: no limitations History of Present Illness HPI Narrative: 34-year-old female presents Express Care complaining of urinary symptoms for 1 day. Patient reports having dysuria, increased frequency, hesitancy since midnight this morning. Patient denies any fevers, abdominal pain, body aches, chills, nausea, vomiting, diarrhea. Patient denies any vaginal bleeding, vaginal discharge, pelvic pain, or any concerns for STIs. Patient denies being on her. But states she has an IUD and does not typically have periods with it. Patient has not taken anything [id number] for symptoms. Patient denies any significant past medical history. Related Data Home Medications ?Medication ?Instructions ?Recorded ?Confirmed ?Last Taken ?Type levonorgestrel 17.5 mcg/24 hr (up 1 device intrauterine ONCE 03/31/24 05/07/24 Unknown History to 5 yrs) 19.5mg intrauterine device (Kyleena) Allergies Allergy/AdvReac Type Severity Reaction Status Date / Time No Known Allergies Allergy Verified 07/29/24 09:04 Review of Systems Review of Systems: CONSTITUTIONAL: Denies fever, chills, body aches, or sweats. EYES: Denies visual changes, redness, or discharge. ENT: Denies rhinorrhea, congestion, sore throat, or otalgia. CARDIOVASCULAR: Denies chest pain, palpitations, or edema. RESPIRATORY: Denies cough or dyspnea. GASTROINTESTINAL: Denies abdominal pain, nausea, vomiting, or diarrhea. GENITOURINARY: Positive for dysuria, increased frequency. Negative for hematuria, vaginal bleeding, vaginal discharge, pelvic pain. SKIN: Denies rash or itching. MUSCULOSKELETAL: Denies back pain, joint pain, or myalgia. NEUROLOGIC: Denies headache, numbness, or weakness. PSYCHIATRIC: Denies anxiety or depression. All other systems reviewed are negative, except as documented in HPI. [facility] Past Medical History Medical History Vaginal delivery x2 Asthma History of herpes simplex infection Surgical History Surgical History [place] teeth removed Family History Family History Mother Carcinoma of colon Father Heart attack Mother Colon cancer Thyroid disease Social History Social History Smoking status: Never smoker Second hand tobacco smoke exposure: Yes Alcohol intake: former Alcohol use details: Not since Substance use: never Lack of Transportation: No Lack of Food: Never True Current Housing: I Have Housing Concerned About Future Housing: No Difficulty Paying Gas/Electric Bills: No Difficulty Paying for Meds: No Currently Unemployed: No Education: Bachelor's Degree Difficulty w/ Childcare or Family Care: No Living arrangements: with family Occupation/Education: occupation Gender identity (if verbalized by the patient): Female Sexual Orientation (if Verbalized by the Patient): Straight or Heterosexual Spiritual care concerns: No Comments At the time of my signature, I reviewed and agree with the nursing past medical, surgical, social, and family history. There is no relevant family history pertinent to the patient complaint. Exam Narrative: GENERAL: This is a well-nourished, well-developed adult, in no apparent distress. They are non ill-appearing, nontoxic appearing. HEAD: normocephalic, atraumatic. EYES: Sclera clear/white. Vision is grossly intact. Conjunctiva normal bilaterally. Extraocular movements intact. EARS: External ears normal,Hearing grossly intact. NOSE: External nose normal THROAT: Mucous membranes moist NECK: Normal range of motion CARDIOVASCULAR: Regular rate and rhythm. Normal S1 and S2. No clicks, gallops, rubs, or murmurs. RESPIRATORY: Respiratory rate normal, respiratory effort nonlabored, no respiratory distress. Lung sounds clear to auscultation throughout. Lung sounds equal bilaterally. No adventitious lung sounds. GASTROINTESTINAL: Abdomen soft, flat, non-tender, nondistended. Bowel sounds are active. No hepato-splenomegaly, or palpable masses. No guarding. No rebound tenderness. SKIN: warm, Dry, intact with no suspicious lesions or rash, good texture and turgor. NEURO: awake, alert, and oriented to person, place and time. There were no obvious focal neurologic abnormalities. EXTREMITIES: No joint tenderness, effusion, or edema noted. BACK: Nontender without deformity. No CVA tenderness. Course Course Emergency Course: Portions of this record may have been created with voice recognition software Level of Care: Express Care Visit Vital Signs Vital signs: Vital Signs Temperature 97.2 F L 07/29/24 08:58 Pulse Rate 75 07/29/24 08:58 Respiratory Rate 16 07/29/24 08:58 Blood Pressure 124/67 07/29/24 08:58 Pulse Oximetry 99 07/29/24 08:58 Oxygen Delivery Room Air 07/29/24 08:58 Temperature 97.2 F L 07/29/24 08:58 Pulse Rate 75 07/29/24 08:58 Respiratory Rate 16 07/29/24 08:58 Blood Pressure 124/67 07/29/24 08:58 Pulse Oximetry 99 07/29/24 08:58 Oxygen Delivery Room Air 07/29/24 08:58 MDM - Female Genitourinary MDM Narrative Medical decision making narrative: Urine dipstick with leukocytes and microscopic blood. Urine culture pending. Urine dipstick and symptoms consistent with urinary tract infection. Recent urine culture showed E coli however other urine culture showed different organisms. Will treat empirically with Bactrim. Discussed physical exam findings. Advised supportive measures and signs/symptoms to go to the ER. Pt is appropriate for outpt treatment and f/u. Differential Diagnosis Differential diagnosis: Likely urinary tract infection, cystitis and other (Pyelonephritis) Lab Data Attestation: I reviewed the patient's lab results. Labs: Lab Results 07/29/24 Range/Units 09:03 POC Urine Color Yellow POC Urine Clarity Cloudy POC Urine pH 6.0 POC Ur Specif [place] 1.010 POC Urine Protein Negative (Negative) POC Ur Glucose (UA) Negative (Negative) POC Urine Ketones Negative (Negative) POC Urine Blood 2+ (Negative) POC Urine Nitrite Negative (Negative) POC Urine Bilirubin Negative (Negative) POC Urine Urobilinogen 0.2 POC U Leukocyte Esteras 3+ (Negative) Discharge Plan Discharge Clinical Impression: Urinary tract infection Patient Disposition: Home Condition: Stable Instructions: Antibiotic Form, Urinary Tract Infection in Women (ED) Additional Instructions: Take the antibiotic as prescribed The urine will be sent of for a culture to identify what type of bacteria is causing your infection. If the culture shows that the antibiotic will not get rid of your infection, you will be notified and a new antibiotic will be called in for you. Increase water intake you will need to follow up with your PCP 3-5 days. Go to the ER for any worsening symptoms, abdominal pain, fevers, nausea, vomiting, or any other concerns Patient Language: Turkish Prescriptions: New sulfamethoxazole-trimethoprim [Bactrim DS] 800-160 mg tablet 1 tablet PO Q12H 7 Days Qty: 14 0RF No Action Kyleena 17.5 mcg/24 hr (5 yrs) 19.5 mg intrauterine device 1 device intrauterine ONCE Rx Instructions: as a single dose Follow-up/Referrals: Baron Blackmon [Other] Time of Disposition: 09:18
== END 2024-07-29 09:23 | disposition home or self-care (01) ==
PROVIDERS: Referring Provider Emergency Medicine
DX: N39.0 Urinary tract infection, site not specified (principal); J45.909 Unspecified asthma, uncomplicated; Z97.5 Presence of (intrauterine) contraceptive device
CPT/HCPCS: 81003; 87077; 87086; 87186; 99213; G0463

== ENCOUNTER 2025-02-26 16:55 | Emergency (ER) | payer OTHER, SELFPAY ==
--- NOTE | 2025-02-26 16:57 | ED.GENADULT ---
HPI - General Adult General Chief complaint: Ear Stated complaint: RT Ear Pain Time Seen by Provider: 02/26/25 16:57 Source: patient Mode of arrival: ambulatory Limitations: no limitations History of Present Illness HPI narrative: 34-year-old female patient presents to [facility] with complaints of right ear pain that started today. Patient states she has had a little bit of a runny nose and congestion for the past week but denies fevers body aches or chills. Denies chest pain shortness of breath denies any abdominal pain nausea vomiting or diarrhea. Patient states she has just taken a Tylenol here and there couple of times for her symptoms. Related Data Home Medications ?Medication ?Instructions ?Recorded ?Confirmed ?Last Taken ?Type levonorgestrel 17.5 mcg/24 hr (up 1 device intrauterine ONCE 03/31/24 05/07/24 Unknown History to 5 yrs) 19.5mg intrauterine device (Kyleena) Allergies Allergy/AdvReac Type Severity Reaction Status Date / Time No Known Allergies Allergy Verified 02/26/25 17:07 Review of Systems Review of Systems: CONSTITUTIONAL: Denies fever, chills, or sweats. EYES: Denies visual changes, redness, or discharge. ENT: positive rhinorrhea, congestion, denies sore throat, Positive right otalgia. CARDIOVASCULAR: Denies chest pain, palpitations, or edema. RESPIRATORY: Denies cough or dyspnea. GASTROINTESTINAL: Denies abdominal pain, nausea, vomiting, or diarrhea. GENITOURINARY: Denies dysuria or hematuria. SKIN: Denies rash or itching. MUSCULOSKELETAL: Denies back pain, joint pain, or myalgia. NEUROLOGIC: Denies headache, numbness, or weakness. PSYCHIATRIC: Denies anxiety or depression. [facility] Past Medical History Medical History Vaginal delivery x2 Asthma History of herpes simplex infection Surgical History Surgical History [place] teeth removed Family History Family History Mother Carcinoma of colon Father Heart attack Mother Colon cancer Thyroid disease Social History Social History Smoking status: Never smoker Second hand tobacco smoke exposure: Yes Alcohol intake: former Alcohol use details: Not since Substance use: never Lack of Transportation: No Lack of Food: Never True Current Housing: I Have Housing Concerned About Future Housing: No Difficulty Paying Gas/Electric Bills: No Difficulty Paying for Meds: No Currently Unemployed: No Education: Bachelor's Degree Difficulty w/ Childcare or Family Care: No Living arrangements: with family Occupation/Education: occupation Gender identity (if verbalized by the patient): Female Sexual Orientation (if Verbalized by the Patient): Straight or Heterosexual Spiritual care concerns: No Comments at the time of my signature I agree with nursing past medical history, surgical, social, and family history. There is no relevant family history pertinent to the presenting complaint. Exam Narrative: GENERAL: Well-appearing, well-nourished, and in no acute distress. HEAD: Normocephalic, atraumatic. EYES: PERRLA and EOMI. ENT: Nares clear, no rhinorrhea or epistaxis. Mucous membranes moist. posterior pharynx no erythema, tonsillar enlargement, exudates or lesions present. The right tympanic membrane is fiery red erythema and slight bulging. NECK: Supple. No lymphadenopathy CHEST: Clear to auscultation. No respiratory distress. HEART: Regular rate and rhythm. No murmur heard. Normal peripheral pulses. ABDOMEN: Soft, nontender, nondistended, normal active bowel sounds. EXTREMITIES: Normal range of motion. No edema. SKIN: Warm, dry, no rash. NEURO: No focal deficits. Alert and oriented x3. Course Course Level of Care: Express Care Visit Vital Signs Vital signs: Vital Signs Temperature 36.4 C L 02/26/25 17:06 Pulse Rate 80 02/26/25 17:06 Respiratory Rate 16 02/26/25 17:06 Blood Pressure 132/78 02/26/25 17:06 Pulse Oximetry 99 02/26/25 17:06 Oxygen Delivery Room Air 02/26/25 17:06 Temperature 36.4 C L 02/26/25 17:06 Pulse Rate 80 02/26/25 17:06 Respiratory Rate 16 02/26/25 17:06 Blood Pressure 132/78 02/26/25 17:06 Pulse Oximetry 99 02/26/25 17:06 Oxygen Delivery Room Air 12/27/25 17:06 Vital signs reviewed. MDM MDM Narrative Medical decision making narrative: Discussed with patient based on exam does appear that she has right-sided ear infection. We will discharge home with oral antibiotics for infection she can continue to take Tylenol and ibuprofen as needed for pain. Patient verbalized understanding denies any other questions or concerns at this time. Differential Diagnosis Differential Diagnosis: Differential diagnosis: Otitis media, otitis externa, perforated TM, infection of the outer ear, foreign body or cerumen impaction, ruptured TM, acute mastoiditis, ligament otitis externa, dehydration, pneumonia, sepsis, dental or intraoral infection, TMJ dysfunction Discharge Plan Discharge Clinical Impression: Acute right otitis media Patient Disposition: Home Condition: Stable Instructions: Antibiotic Form, Ear Infection (GEN) Additional Instructions: An ear infection is also called otitis media. An ear infection may be caused by blocked or swollen eustachian tubes. Eustachian tubes connect the middle ear to the back of the nose and throat. They drain fluid from the middle ear. With an ear infection, fluid builds up and is infected by germs. The germs grow easily in fluid trapped behind the eardrum. DISCHARGE INSTRUCTIONS: Call 911 or have someone call 911 for the following: You have a seizure. Return to the emergency department if: You have a fever and a stiff neck. Contact your healthcare provider if: Your ear pain gets worse or does not go away, even after treatment. The outside of your ear is red or swollen. You are vomiting or have diarrhea. You have fluid coming from your ear. You have questions or concerns about your condition or care. Medicines: Acetaminophen decreases pain and fever. It is available without a doctor's order. Ask how much to take and how often to take it. Follow directions. Read the labels of all other medicines you are using to see if they also contain acetaminophen, or ask your doctor or pharmacist. Acetaminophen can cause liver damage if not taken correctly. Do not use more than 4 grams (4,000 milligrams) total of acetaminophen in one day. NSAIDs , such as ibuprofen, help decrease swelling, pain, and fever. This medicine is available with or without a doctor's order. NSAIDs can cause stomach bleeding or kidney problems in certain people. If you take blood thinner medicine, always ask your healthcare provider if NSAIDs are safe for you. Always read the medicine label and follow directions. Ear drops help treat your ear pain. Antibiotics help treat a bacterial infection that caused your ear infection. Take your medicine as directed. Contact your healthcare provider if you think your medicine is not helping or if you have side effects. Tell him or her if you are allergic to any medicine. Keep a list of the medicines, vitamins, and herbs you take. Include the amounts, and when and why you take them. Bring the list or the pill bottles to follow-up visits. Carry your medicine list with you in case of an emergency. Prevent an ear infection: Wash your hands often. Use soap and water. Wash your hands after you use the bathroom, change a child's diapers, or sneeze. Wash your hands before you prepare or eat food. Handwashing Stay away from people who are ill. Some germs are easily and quickly spread through contact. Patient Language: Setswana Prescriptions: New amoxicillin-pot clavulanate 875-125 mg tablet 1 tablet PO Q12H 7 Days Qty: 14 0RF No Action sulfamethoxazole-trimethoprim [Bactrim DS] 800-160 mg tablet 1 tablet PO Q12H 7 Days Qty: 14 0RF Kyleena 17.5 mcg/24 hr (5 yrs) 19.5 mg intrauterine device 1 device intrauterine ONCE Rx Instructions: as a single dose valacyclovir 500 mg tablet 500 mg PO Q12H Qty: 30 1RF Rx Instructions: take 1 tablet BID x 3 days as needed for outbreaks. Follow-up/Referrals: UNKNOWN,DOCTOR [Non-Staff] Time of Disposition: 17:20
--- OUTSIDE RECORDS SUMMARY | 2025-02-26 16:58 | XMS_ITS | Clinical Summary ---
Author Organization [facility] Address [address] [place] [id number] Care Team Providers Care Delivery Truck Driver Name Role Phone Yonny Chappell MD Primary Care Prov ider Medications probiotic (FLORAJEN3) Cap capsule Take 1 [...] Comments Blood Pressure 123/69 03/21/2023 2:10 PM ASSOCIATE PROFESSOR OF ENGINEERING Pulse 81 03/21/2023 2:10 PM ASSOCIATE PROFESSOR OF ENGINEERING Temperature 36.8 C (98.3 F) 03/21/2023 2:10 PM ASSOCIATE PROFESSOR OF ENGINEERING Respiratory Rate 16 03/21/2023 2:10 PM ASSOCIATE PROFESSOR OF ENGINEERING Oxygen Saturation 97% 03/21/2023 2:10 PM ASSOCIATE PROFESSOR OF ENGINEERING Inhaled Oxygen Concentration - - Weight 65 kg (143 lb 3.2 oz) 03/21/2023 2:10 PM ASSOCIATE PROFESSOR OF ENGINEERING Height 160 cm (5' 3) 03/21/2023 2:10 PM ASSOCIATE PROFESSOR OF ENGINEERING Body Mass Index 25.37 03/21/2023 2:10 PM ASSOCIATE PROFESSOR OF ENGINEERING Plan of Treatment Health Maintenance Due Date Last Done Comments Annual Physical 1993 Hepatitis C 2008 Hepatitis B Vaccines (1 of 3 - 19+ 3-dose series) 2009 HPV Vaccines (1 - 3-dose SCD M series) 2017 Cervical Cancer Screening Pa p Smear (Age 30 to 64) Every 3 Years 12/06/2019 12/05/2016 Cervical Cancer Screening Pa p with HPV Testing (Age 30 to 64) Every 5 Years 2020 11/28/2015 Cervical Cancer Screening wi th HPV 2020 PHQ-2 (Physician [place]) 03/03/2024 03/21/2023 COVID-19 Vaccine (3 - 2024-2 6 season) 2024 10/02/2021, 06/12/2020 Influenza Adult (#1) 2024 DTaP, Tdap and Td Vaccines ( 3 - Td or Tdap) 03/21/2032 03/21/2022, 03/28/2019 Hepatitis A Vaccines Aged Out No long er eligible based on patient's age to complete [...] Most Recently Relevant to Health Maintenance Insurance [facility] Care Teams Delivery Truck Driver Relationship Specialty Start Date End Date Yonny Chappell MD [address] [place] [phone] PCP - General FAMILY PRACTICE 11/15/24
--- OUTSIDE RECORDS SUMMARY | 2025-02-26 17:00 | XMS_ITS | Clinical Summary ---
Author Organization [employer] [address] Address [address] [facility] [address] [place] [address] Phone Care Team Providers Care Chair Spring Assembler Name Role Phone Unavailable Primary Care Provider [...] (1 of 3 - 19+ 3-dose series) 08/2009 HPV/Cotest (21-29) 06/08/2011 CERVICAL CANCER SCREENING 2020 HPV/Cotest (30-65) 2020 PAP SMEAR 2020 INFLUENZA VACCINE (#1) 2024 HPV VACCINES (No Doses Required) Completed Insurance [facility] [employer] PPO [id number]
[2025-02-26 17:06] VITALS: BP 132/78; PULSE 80; RESP 16; TEMP 36.4; O2SAT 99
== END 2025-02-26 17:42 | disposition home or self-care (01) ==
PROVIDERS: Emergency Provider Nurse Practitioner Family
DX: H66.91 Otitis media, unspecified, right ear (principal); J45.909 Unspecified asthma, uncomplicated
CPT/HCPCS: 99213; G0463